=== PATIENT | female | born 1935 | race Caucasian/White ===

== ENCOUNTER 2024-03-30 08:50 | Emergency (ER) | payer MEDICARE, SELFPAY ==
[2024-03-30 08:54] VITALS: BP 151/77; PULSE 88; RESP 16; TEMP 36.8; O2SAT 97; BMI 22.7
--- NOTE | 2024-03-30 09:03 | CT_ITS ---
Patient: PHONG FRANK Facility:?[facility] Patient ID:?[id number] Site Patient ID:?[id number]. Site :?[id number] Study:?CT-Head -03/30/2024 9:38:24 AM Ordering Physician:?DR. DANIELLE Final Report: INDICATION: Fall, pain, bump on back of head TECHNIQUE: Noncontrast axial CT of the head. Coronal and sagittal reformats. Bone and soft tissue algorithms. COMPARISON: MRI brain report 08/10/2020 FINDINGS: The calvarium appears grossly intact. No acute intracranial hemorrhage or abnormal extra-axial fluid collection. No midline shift, hydrocephalus or herniation. Generalized cerebral volume loss. Scattered hypoattenuation throughout the supratentorial white matter typical of chronic microangiopathy. Preserved payne-white matter differentiation. Calcific intracranial atherosclerotic plaquing. Partially empty sella configuration. Clear visualized paranasal sinuses and mastoid air cells. Bilateral lens implants. IMPRESSION: 1. No skull fracture or acute intracranial hemorrhage identified. 2. Generalized cerebral volume loss and chronic microangiopathy changes. Please note that all CT scans at this facility use dose modulation, iterative reconstruction, and/or weight-based dosing when appropriate to reduce radiation dose to as low as reasonably achievable. Dictated by Holley Ward MD @ 03/30/2024 9:49:45 AM Signed by:?Holley Ward MD @03/30/2024 9:49:45 AM (Electronic Signature)
--- NOTE | 2024-03-30 09:03 | CT_ITS ---
Patient: PHONG FRANK Facility:?[facility] Patient ID:?[id number] Site Patient ID:?[id number]. Site :?[id number] Study:?CT-Spine Cervical -03/30/2024 9:36:57 AM Ordering Physician:?DR. DANIELLE Final Report: Indication: Fall, pain, bump on back of head Technique: Noncontrast axial CT of the cervical spine with coronal and sagittal reformats. Comparison: Same-day CT head Findings: The normal cervical lordosis is preserved. Trace degenerative anterolisthesis at C3-4 and C4-5. No acute fracture identified. Craniocervical junction appears within normal limits. Mild scattered spondylosis, without evidence of high-grade neural foraminal or spinal canal stenosis. No concerning findings identified in the paraspinous soft tissues. Clear lung apices. Impression: No evidence of acute fracture or traumatic malalignment in the cervical spine. Please note that all CT scans at this facility use dose modulation, iterative reconstruction, and/or weight-based dosing when appropriate to reduce radiation dose to as low as reasonably achievable. Dictated by Holley Ward MD @ 03/30/2024 9:52:15 AM Signed by:?Holley Ward MD @03/30/2024 9:52:15 AM (Electronic Signature)
--- NOTE | 2024-03-30 09:14 | ED_ITS ---
HPI - Head Injury General Date Seen: 03/30/24 Chief complaint: Head Injury/Pain Stated complaint: fell out of bed, hit head Time Seen by Provider: 03/30/24 09:00 Source: patient Mode of arrival: ambulatory Limitations: no limitations History of Present Illness HPI Narrative: Patient is an 89-year-old female presenting to emergency department of the hitting her head. She states the roughly 04:15 today she rolled off her bed and hit the side of her head against the side table. This causes side table the be per started wearing and the list of on top was knocked down. She denies losing consciousness. Was feeling well that time and got back into bed after taking the Tylenol. She is still feeling well at this time other than a mild headache but came in to be evaluated. She does take in the 81 mg aspirin daily but no other blood thinning medications. Denies fevers, chills, chest Pain, weakness, numbness, vision changes, shortness of breath And was able to ambulate into the emergency department without issue. No other concerns noted at this time. Related Data Home Medications Medication Instructions Recorded Confirmed aspirin 81 mg tablet,delayed 81 mg PO QDAY 08/09/23 03/30/24 release (Adult Low Dose Aspirin) atorvastatin 20 mg tablet 20 mg PO DAILY 08/09/23 03/30/24 blood sugar diagnostic (Regenerative Medical SolutionsTouch #10 ea 08/09/23 08/09/23 Verio test strips) insulin glargine 100 unit/mL (3 unit subcut 08/09/23 08/09/23 mL) subcutaneous pen (Lantus Solostar U-100 Insulin) lancets 33 gauge (Regenerative Medical SolutionsTouch Delica #100 ea 08/09/23 08/09/23 Plus Lancet) levothyroxine 75 mcg tablet 75 mcg PO DAILY 08/09/23 03/30/24 metformin 500 mg tablet,extended 1,000 mg PO BID 08/09/23 03/30/24 release 24 hr pen needle, diabetic 32 gauge x #1,200 ea 08/09/23 08/09/23 (BD Ivelisse 2nd Gen Pen Needle) insulin aspar prot-insulin aspart subcut 03/30/24 100 unit/mL (70-30) subcutaneous pen losartan 25 mg tablet mg 03/30/24 Allergies Allergy/AdvReac Type Severity Reaction Status Date / Time No Known Drug Allergies Allergy Verified 08/09/23 11:19 Review of Systems Status of ROS: Reports: 10 or more systems reviewed and unremarkable except as noted in History and below PFSH PFS Social History Smoking Status: Never smoker Do you use any of these nicotine containing products: None How often do you have a drink containing alcohol: never How often do you have six or more drinks on one occasion: Never AUDIT-C Alcohol total score: 0 Non-prescribed substance use: denies use service: No Exam Narrative: Exam Narrative: Const: Well-nourished, Well-developed, in No distress Eyes: PERRL, no conjunctival injection, and symmetrical lids HENT: Atraumatic external nose and ears. Moist mucous membranes. Small hematoma noted to the left posterior portion of the parietal bones Neck: Symmetric, trachea midline, No thyromegaly. CVS: RRR, No murmurs or gallops. Peripheral pulses 2+ and equal in all extremities RESP: Unlabored respiratory effort. Clear to auscultation bilaterally. GI: Nontender/Nondistended, No rebound or guarding. MSK:Extremities w/o deformity, Normal Active ROM Skin: Warm, Dry. No rashes or lesions. Neuro: Normal Muscle tone, No focal neurological deficits. Psych: Awake, Alert, & Oriented x3. Appropriate mood and affect. Const: Vital Signs, click to edit/add: Vital Signs - 24 hr 03/30/24 08:54 Temperature 98.2 F Pulse Rate [Pulse Oximeter] 88 Respiratory Rate 16 Blood Pressure [Ri ght Upper Arm] 151/77 H Pulse Oximetry 97 Oxygen Delivery Me thod Room Air Course Vital Signs Vital signs: Initial Vital Signs Temperature 98.2 F 03/30/24 08:54 Temperature Source Temporal Artery Scan 03/30/24 08:54 Pulse Rate 88 03/30/24 08:54 Respiratory Rate 16 03/30/24 08:54 Blood Pressure 151/77 H 03/30/24 08:54 Blood Pressure Mean 101 03/30/24 08:54 Blood Pressure Position Supine 03/30/24 08:54 Pulse Oximetry 97 03/30/24 08:54 Oxygen Delivery Method Room Air 03/30/24 08:54 Vital Signs Temperature 98.2 F 03/30/24 08:54 Pulse Rate 88 03/30/24 08:54 Respiratory Rate 16 03/30/24 08:54 Blood Pressure 151/77 H 03/30/24 08:54 Pulse Oximetry 97 03/30/24 08:54 Oxygen Delivery Method Room Air 03/30/24 08:54 Temperature 98.2 F 03/30/24 08:54 Pulse Rate 88 03/30/24 08:54 Respiratory Rate 16 03/30/24 08:54 Blood Pressure 151/77 H 03/30/24 08:54 Pulse Oximetry 97 03/30/24 08:54 Oxygen Delivery Method Room Air 03/30/24 08:54 MDM - Head Injury MDM Narrative Medical decision making narrative: Patient is An 89-year-old female presenting to emergency department after a fall at occurred roughly 5 hours prior to arrival. She is having no symptoms at this time other than a mild headache. Due to her age I did order a CT scan of the cervical spinal will also scan her head. Is not requesting any pain medication this time. has no neurological symptoms currently. CT is reviewed by myself and the radiologist showed no concerning abnormalities. She continues to have stable vital signs we others asymptomatic. Will be discharged. Imaging Data CT Scan - Cervical Spine: Attestation: I have reviewed the pertinent imaging results. Radiologist's impression: No evidence of acute fracture or traumatic malalignment in the cervical spine. Please note that all CT scans at this facility use dose modulation, iterative reconstruction, and/or weight-based dosing when appropriate to reduce radiation dose to as low as reasonably achievable. Dictated by Holley Ward MD @ 03/30/2024 9:52:[address] scan - head: Attestation: I have reviewed the pertinent imaging results. Radiologist's impression: 1. No skull fracture or acute intracranial hemorrhage identified. 2. Generalized cerebral volume loss and chronic microangiopathy changes. Please note that all CT scans at this facility use dose modulation, iterative reconstruction, and/or weight-based dosing when appropriate to reduce radiation dose to as low as reasonably achievable. Dictated by Holley Ward MD @ 03/30/2024 9:49:45 AM Discharge Plan Discharge Clinical Impression: Closed head injury Patient Disposition: Home, Self-Care Condition: Stable Instructions: Head Injury (DC) Additional Instructions: Take Tylenol ibuprofen as needed for pain. If symptoms worsen or develop any new symptoms return to emergency department for re-evaluation Prescriptions: No Action insulin glargine [Lantus Solostar U-100 Insulin] 100 unit/mL (3 mL) insulin pen subcut (DME) lancets [OneTouch Delica Plus Lancet] 33 gauge misc See Rx Instructions .ROUTE .MEDSUPPLY Qty: 100 Patient Comments: [NO ORIGINAL SIG] Rx Instructions: As directed (DME) pen needle, diabetic [BD Ivelisse 2nd Gen Pen Needle] 32 gauge x 5/32 needle See Rx Instructions .ROUTE .MEDSUPPLY Qty: 1200 Patient Comments: [NO ORIGINAL SIG] Rx Instructions: As directed atorvastatin 20 mg tablet 20 mg PO DAILY metformin 500 mg tablet extended release 24 hr 1,000 mg PO BID levothyroxine 75 mcg tablet 75 mcg PO DAILY (DME) OneTouch Verio test strips Strip See Rx Instructions .ROUTE QID Qty: 10 Rx Instructions: As directed aspirin [Adult Low Dose Aspirin] 81 mg tablet,delayed release (DR/EC) 81 mg PO QDAY losartan 25 mg tablet Patient Comments: [NO ORIGINAL SIG] insulin asp prt-insulin aspart 100 unit/mL (70-30) insulin pen SUBCUT Patient Comments: ADMINISTER 5 UNITS UNDER THE SKIN BEFORE BREAKFAST AND SUPPER MEALS Follow Up/Referrals: Adonis Aguilar MD [Primary Care Provider] - Stand Alone Forms: [employer] Info Instructions
== END 2024-03-30 10:30 | disposition home or self-care (01) ==
PROVIDERS: Emergency Provider Student in an Organized Health Care Education/Training Program; PCP Family Medicine
DX: S09.90XA Unspecified injury of head, initial encounter (principal); W06.XXXA Fall from bed, initial encounter
CPT/HCPCS: 70450; 72125; 99282; 99283

== ENCOUNTER 2024-04-11 11:12 | Outpatient (CLI) | payer MEDICARE, SELFPAY | END 2024-04-11 11:13 | disposition home or self-care (01) | LOC: NFLDREF 04-27 15:31 | PROVIDERS: PCP Family Medicine; Referring Provider Family Medicine; Visit Provider Nurse Practitioner | DX: N30.00 Acute cystitis without hematuria (principal); B96.1 Klebsiella pneumoniae [K. pneumoniae] as the cause of diseases classified elsewhere | CPT/HCPCS: 87086; 87186 ==

== ENCOUNTER 2024-09-01 06:16 | Day surgery (SDC) | payer MEDICARE, SELFPAY ==
[2024-09-01] VITALS (7 sets, daily range): BP systolic 140–177; BP diastolic 68–85; PULSE 73–83; RESP 16–20; TEMP 36.2–37.1; O2SAT 95–97; BMI 23.6
[2024-09-01] MEDS: BUPIVACAINE 0.5% 30 ML INJECTION (07:00)
--- NOTE | 2024-09-01 09:46 | PM.ORPRC ---
Procedure Note Date of procedure: 09/01/24 Procedure: PREOPERATIVE DIAGNOSIS: 1. Left carpal tunnel syndrome POSTOPERATIVE DIAGNOSIS: 1. Left carpal tunnel syndrome PROCEDURE: 1. Left open carpal tunnel release SURGEON: Jalen Martini MD. [employer]: OCTAVIO Cook ANESTHESIA: Local anesthetic (50:50 mixture of 1% lidocaine with epi and 0.5% marcaine plain) - 10ml total IMPLANTS: None EBL: 2 mL TOURNIQUET: None COMPLICATIONS: None evident INDICATIONS: The patient is a pleasant 89-year-old female who has experienced left hand numbess/tingling affecting the radial 3.5 digits for multiple months. It has progressively gotten worse. Nonoperative management has been tried and failed, and therefore surgery was recommended. DESCRIPTION OF PROCEDURE: Following a thorough discussion of risks, benefits, and alternatives consent was obtained and the operative extremity was marked. The patient was brought to the operating room and placed supine on the operating table. Local anesthesia induction was undertaken in preop holding. No antibiotics were administered as this was planned to be a local case only. Proper time-out was performed identifying proper patient, site, and procedure. The operative extremity was prepped and draped in the appropriate sterile fashion using ChloraPrep. An incision was made in line with the radial border of the ring finger beginning 1 cm distal to the distal wrist crease and progressing for another 2.5cm distal. Caution was taken to stay proximal to Gaviria's cardinal line. Sharp incision through the skin, subcutaneous tissue, and palmar fascia was performed. The thenar musculature was bluntly elevated off the transverse carpal ligament. The ligament was directly visualized, and divided sharply with a 15 blade. This was released from its most proximal to the most distal extent. Metzenbaum scissor was also utilized to release the fascia extension proximally. We confirmed complete release of the transverse carpal ligament. Closure was performed with 4-O nylon in interrupted fashion. Soft dressings were applied, and the patient was transferred to the recovery room in stable condition. PLAN: 1. Encourage elevation of the operative extremity. 2. Range of motion of the fingers and hand/wrist as tolerated. 3. Ibuprofen/acetaminophen and/or oxycodone as needed for pain control. 4. Follow up with PA visit or nurse visit in 12-16 days for wound check and suture removal.
== END 2024-09-01 08:02 | disposition home or self-care (01) ==
LOC: OR 06:18
PROVIDERS: PCP Family Medicine; Visit Provider Orthopaedic Surgery Sports Medicine
PROC: (CPT 64721; principal; 2024-09-01 07:15)
DX: G56.02 Carpal tunnel syndrome, left upper limb (principal)
CPT/HCPCS: 64721; J0665

== ENCOUNTER 2024-11-17 06:16 | Day surgery (SDC) | payer MEDICARE, SELFPAY ==
[2024-11-17] VITALS (7 sets, daily range): BP systolic 150–166; BP diastolic 70–77; PULSE 72–79; RESP 16; TEMP 36.2; O2SAT 96–100
--- OUTSIDE RECORDS SUMMARY | 2024-11-17 06:20 | XMS_ITS | Continuity of Care Document ---
Author Name [email or web address] Address Unknown Organization Unknown Address Unknown Procedures FILTER APPLIED:Only known Procedures with Onset Date within the last 5 years Procedure Date Procedure Provider Additional Inform ation Status CT NECK SPINE W/O DYE (04756) Completed CT HEAD/BRAIN W/O DYE (90199) Completed Encounters FILTER APPLIED:Only known Encounters with Admission Date within the last 5 years Encounter Location Admission Discharge Billing Code Technical Sales Director [facility] steinberg
--- OUTSIDE RECORDS SUMMARY | 2024-11-17 06:21 | XMS_ITS | Clinical Summary ---
Author Organization [email or web address] Address [place], [place] [address] Care Team Providers Care Security Incident Response Specialist Name Role Phone Raymond Arevalo Unavailable Adonis Aguilar MD Primary Care Provider Allergies No known active allergies Medications zinc 50 mg tablet Twice weekly 0 11/15/19 15 Active calcium carbonate-vitami n D3, 500 mg-400 units, (OSCAL 500 + D) tablet Take 1 tablet by mouth once daily. May take 3 extra doses in 1 week. 0 02/22/20 16 Active ascorbic acid (VITAMIN C) 100 mg tablet Take 1 tablet 2 times in 1 week. Take with Zinc. 0 02/22/20 16 Active acetaminophen (TYLENOL EXTRA STRGTH) 500 mg tablet Take 1 tablet by mouth every 6 hours if needed. Max acetaminophen dose: 4000mg in 24 hrs. 0 01/11/20 17 Active blood-glucose meterIndications :Diabetes mellitus type 2, noninsulin dependent (HC) Dispense meter, test strips, lancets covered by pt ins. E11.9 NIDDM type II - Test 1 time/day 1 Device 03/03/20 18 Active aspirin (ECOTRIN) 81 mg enteric coated tablet Take 1 tablet by mouth once daily with a meal. 0 08/11/20 20 Active cyanocobalamin (VITAMIN B12) 1,000 mcg tabletIndication s:Vitamin B12 deficiency TAKE 1 TABLET BY MOUTH EVERY DAY 90 Tablet 1 08/23/20 21 Active lancets (OneTouch Delica Plus Lancet) 33 gauge miscIndications: Diabetes mellitus type 2, noninsulin dependent (HC) USE TO TEST TWICE DAILY 200 Each 3 01/22/20 23 Active atorvastatin (LIPITOR) 20 mg tabletIndication s:Controlled type 2 diabetes mellitus without complication, without long-term current use of insulin (HC) Take 1 Tablet (20 mg) by mouth once daily. 90 Tablet 3 11/14/19 24 Active levothyroxine (SYNTHROID) 100 mcg tabletIndication s:Hypothyroidism , unspecified type Take 1 Tablet (100 mcg) by mouth before breakfast. 90 Tablet 3 02/18/20 24 Active FreeStyle Tony 3 Sensor for continuous blood glucose monitor (CGM)Indications :Controlled type 2 diabetes mellitus without complication, without long-term current use of insulin (HC) To be used to read blood sugars, follow annual greenhouse manager directions. Change each sensor every 14 days 6 Each 3 04/12/20 24 Active metFORMIN (GLUCOPHAGE XR) 500 mg Extended-Release tabletIndication s:Controlled type 2 diabetes mellitus without complication, without long-term current use of insulin (HC) TAKE 4 TABLETS(2000 MG) BY MOUTH EVERY DAY WITH THE EVENING MEAL 360 Tablet 1 05/17/20 24 Active pen needle (BD Ivelisse 2nd Gen Pen Needle) 32 gauge x 5/32 (disposable insulin pen needle)Indicatio ns:Controlled type 2 diabetes mellitus with complication, with long-term current use of insulin (HC) As directed 4 to 6 times daily after meals, at bedtime and as needed. 400 Each 3 06/28/20 24 Active FreeStyle Tony 3 [place] for continuous blood glucose monitor (CGM)Indications :Controlled type 2 diabetes mellitus without complication, without long-term current use of insulin (HC) To be used to read blood sugars follow annual greenhouse manager directions. 1 Each 08/06/20 24 Active blood sugar diagnostic (OneTouch Verio test strips) stripIndications :Diabetes mellitus type 2 with complications (HC) USE TO TEST 3-4 TIMES DAILY 300 Each 3 08/18/20 24 Active oxybutynin (DITROPAN) 5 mg tabletIndication s:OAB (overactive bladder) Take 1 Tablet (5 mg) by mouth two times daily. 180 Tablet 3 08/18/20 24 Active Lantus Solostar U-100 Insulin 100 unit/mL (3 mL) penIndications:C ontrolled type 2 diabetes mellitus without complication, without long-term current use of insulin (HC) Inject 4 units subcutaneous before bedtime. Product desired: LANTUS SOLOSTAR 15 mL 1 08/18/20 24 Active FreeStyle Tony 3 Plus Sensor for continuous blood glucose monitor (CGM)Indications :Controlled type 2 diabetes mellitus without complication, without long-term current use of insulin (HC) To be used to read blood sugars, follow annual greenhouse manager directions. 6 Each 3 09/09/20 24 Active insulin aspart, U-100, (NOVOLOG FLEXPEN) 100 unit/mL (3 mL) penIndications:C ontrolled type 2 diabetes mellitus without complication, without long-term current use of insulin (HC) ADMINISTER 4 TO 8 UNITS UNDER THE SKIN BEFORE MEALS 9 mL 1 09/29/20 24 Active estradioL (ESTRACE) 0.01% (0.1 mg/g) vaginal creamIndications :Post-menopausal atrophic vaginitis Place a small amount to the outside of vaginal and labia at bedtime. 42.5 g 3 10/11/20 24 Active clotrimazole-bet amethasone 1%-0.05% creamIndications :Post-menopausal atrophic vaginitis Apply topically to affected area(s) two times daily. 15 g 10/11/20 24 Active olmesartan (BENICAR) 40 mg tabletIndication s:Benign essential HTN Take 1 Tablet (40 mg) by mouth once daily. 30 Tablet 11 10/26/20 24 Active amLODIPine (NORVASC) 2.5 mg tabletIndication s:Benign essential HTN Take 1 Tablet (2.5 mg) by mouth once daily. 90 Tablet 3 11/05/20 24 Active losartan (COZAAR) 100 mg tabletIndication s:Benign essential HTN Take 1 Tablet (100 mg) by mouth once daily. 90 Tablet 3 06/28/20 24 024 Discontinu ed(*Medica tion adjustment ) cephalexin 500 mg capsuleIndicatio ns:urinary tract infection Take 1 Capsule (500 mg) by mouth two times daily for 7 days. 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. MRI head performed 08/10/20; awaiting results. Patient started on Eliquis 2.5 mg PO BID and Asa 81 mg PO QD. Urinary incontinence 06/12/2020 Benign essential HTN 02/08/2019 Controlled type 2 diabetes m mo with complication, with long-term current use of insulin 12/02/2018 Primary osteoarthritis of both knees 11/16/2015 ACP (advance care planning) 10/23/2011 Overview (10/23/2011): Has one; will bring in. 10/23/2011 Unspecified hypothyroidism 07/22/2007 Resolved Problems Problem Noted Date Diagnosed Date Resolved Date Vulvar itching 05/29/2023 08/18/2024 Atrial fibrillation with rap id ventricular response 01/07/2017 09/22/2020 Anticoagulation monitoring, INR range 2-3 01/07/2017 01/24/2017 Type II diabetes mellitus 01/19/2015 Impaired fasting glucose 10/23/201110/2015 Hair thinning 10/16/2010 06/02/2018 Overview (10/16/2010): Referred to Dr Yanet Olivier. 10/16/2010 Generalized osteoarthrosis, unspecified site 9 12/14/2020 Sciatica 10/11/2009 06/02/2018 Overview (10/11/2009): Right Leg Postmenopausal atrophic vaginitis 10/11/2009 12/14/2020 Routine general medical exam ination at a health care facility 10/06/2007 06/02/2018 Overview (10/11/2009): colonoscopy 09/2002 Recheck 5 yrs colonoscopy 11/26/2004 Recheck 5 yrs colonoscopy 11/2007 Recheck 5 yrs Bone Density 10/06/2006 Osteopenia Recheck 2 yrs: Bone mineral density 10/2008: stable Benign neoplasm of colon 10/06/200702/2021 Overview (11/15/2015): Colonoscopy 11/2012 polyps repeat in 3 years Colonoscopy 11/2015 diverticulosis repeat in 5 years Pain in joint, site unspecified 10/06/2007 06/02/2018 Osteoporosis, unspecified 07/22/2007 Overview (10/16/2010): Quit Fosamax in approximately 06/2010. 10/16/2010 Mixed hyperlipidemia 07/22/2007 012 Encounters Date Type Department Care Team Description 11/05/2024 11:20 AM PICKLE SOLUTION MAKER Office Visit [facility] [place] [address] [place] [address] Adonis Aguilar MD Follow Up (Blood pressure medication change) 11/05/2024 Travel 10/26/2024 2:30 PM PICKLE SOLUTION MAKER Office Visit [facility] [place] [address] [place] [address] Adonis Aguilar MD Blood Pressure (Elevated blood pressure past 3 days) 10/26/2024 Travel 10/25/2024 Telephone [facility] [place] [address] [place] [address] Adonis Aguilar MD High Blood Pressure 10/25/2024 Nurse Triage [facility] [place] [address] [place] [address] Adonis Aguilar MD High Blood Pressure 10/13/2024 Orders Only [facility] [place] [address] [place] [address] Salma Warren, DO <No scans attached> 10/11/2024 11:05 AM PICKLE SOLUTION MAKER Office Visit [facility] [place] [address] [place] [address] Salma Warren, Bladder Infection (cloudy urination, frequency, urgency, burning); Vaginal Problem (right side of labia/) 10/11/2024 Travel 09/26/2024 Refill [facility] [place] [address] [place] [address] Adonis Aguilar MD Refill Request (Insulin Aspart (U-100)) 09/06/2024 Refill [facility] [place] [address] [place] [address] Adonis Aguilar MD Refill Request (Freestyle Tony 3 Sensor) 08/30/2024 Telephone [facility] [address] [place] [address] Steph Reza, RN Questions 08/18/2024 9:40 AM CDT Office Visit [facility] [place] [address] [place] [address] Adonis Aguilar MD Medicare ANNUAL (subsequent) Visit (89 year old); Hand Pain/problem (Bilateral hand pain, ongoing) 08/18/2024 Telephone [facility] [place] [address] [place] [address] Adonis Aguilar MD Results 08/18/2024 Travel from Last 3 Months Immunizations Name Administration Dates Next Due Amb Influenza, Inact (Intrad ermal)(age 18-64 Yrs)(Flu Clinic Only) 09/08/2012 COVID-19 VACCINE SPIKEVAX (M ODERNA 50MCG/0.5ML) 12YO+ PFS 07/26/2024,05/17/2024,08/07/2023 COVID-19 vaccine (Trademob-Bio NTech 30mcg/0.3mL) 12YO+ BIVALENT PF, MDV 04/24/2023,08/08/2022 COVID-19 vaccine (Pfizer-Bio NTech 30mcg/0.3mL) PF, MDV 01/06/2021,12/16/2020 Influenza A (H1N1), Inactivated 12/07/2009 Influenza, High-dose Inactivated 024,08/07/2016,07/31/2015,08/08 Influenza, High-dose Quadriv alent Inactivated 08/01/2021 Influenza, IIV3 (Age 6-35 mos) 07/14/2020 Influenza, IIV3 (Age >=3 years) 08/11/20 13,07/28/2012,07/09/2011,07/31,07/24/2009,08/10/2008,09/03/2007 ,09/29/2006,09/02/2005,09/10/2004 Influenza, Inactivated AIIV4 (Age 65+ Years) Preserv Free 08/08/2022 Influenza, Inactivated IIV3 (Age 65+ Years) Preserv Free 08/05/2019,08/31/2018,08/07/2017 Influenza,CCIIV4 PRESERV FREE 08/07/2023 Pneumococcal Conj 20-valent (Prevnar 20) 05/29/2023 Pneumococcal Poly,23-Valent (Pneumovax) 09/05/2003 Pneumococcal conj 13-Valent (Prevnar 13) 08/22/2015 RSV, Recombinant ADJ Reconst ituted (Arexvy 120MCG/0.5mL) 08/16/2023 Td (Age >=7 Years) 09/06/2002 Tdap 09/18/2021,10/23/2011 Zoster (Shingrix-RZV, recombinant) 06/02/2018,,12/11/2017 Zoster (Zostavax-ZVL, live) 02/23/2007 Family History Medical History Relation Name Comments Hypertension Brother 1 Jacinto Heart Disease Brother 2 Wilfrid Cancer-prostate Father Thad Heart Disease Father Thad CHF, age 96 Hypertension Father Thad Other Father Thad Renal Failure Heart Disease Mother Etelvina CHF Diabetes Other uncles Anesthesia Problem No Family History Blood Disease No Family History Cancer-breast No Family History Relation Name Status Comments Brother 1 Jacinto Alive Brother 2 Wilfrid Alive Father Thad (Age 96) Mother Etelvina (Age 72) Other Social History Tobacco Use Types Packs/Day Years Used Date Smoking Tobacco: Former Cigarettes Smokeless Tobacco: Former Quit: 11/10/1960 Tobacco Cessation:Counseling Given: No Alcohol Use Standard Drinks/Week Comments Yes 4 (1 standard drink = 0.6 oz pur e alcohol) 5 oz wine 4 times a week [facility] Utilities Answer Date Recorded Do you have trouble paying f or utilities (for example, heat, electricity, water, phone)? Yes 07/26/2024 PHQ-2 Answer Date Recorded PHQ-2 TOTAL SCORE 1 08/18/2024 Social Connections Answer Date Recorded Do you often feel lonely or isolated from those around you? 0 07/26/2024 Financial Resource Strain Answer Date R ecorded Difficulty of Paying Living Expenses 3 07/26/2024 Difficulty of Paying Living Expenses Not on file 07/26/2024 Food Insecurity Answer Date Recorded Do you worry your food will run out before you are able to buy more? 1 07/26/2024 Transportation Needs Answer Date Record ed Does lack of transportation keep you from medica l appointments? 1 07/26/2024 Does lack of transportation keep you from work, meetings or getting things that you need? 1 07/26/2024 Housing Stability Answer Date Recorded What is your housing situation today? 1 07/26/2024 Comments No Sex and Gender Information Value Date Recorded Sex Assigned at Not on file Legal Sex Female 6:28 AM PICKLE SOLUTION MAKER Gender Identity Not on file Sexual Orientation Not on file Occupation Industry Job Start Date Job End Date Retired Nurse Not on file Not on file Not on file Obstetrics History Para Term AB IAB SAB Ectopic Multiple Livin g Live Births 4 3 3 1 1 3 Date Outcome GA Total Labor Labor/2nd/3rd Weight Sex Type Anes PTL Jazlyn A1 A5 Name Clin Term Term Term SAB Last Filed Vital Signs Vital Sign Reading Time Taken Comments Blood Pressure 169/71 11/05/2024 11:18 AM PICKLE SOLUTION MAKER Pulse 84 11/05/2024 11:18 AM PICKLE SOLUTION MAKER Temperature 36.8 C (98.3 F) 04/26/2024 10:37 AM CDT Respiratory Rate 18 09/21/2021 10:4 7 AM PICKLE SOLUTION MAKER Oxygen Saturation 96% 11/05/2024 11: 18 AM PICKLE SOLUTION MAKER Inhaled Oxygen Concentration - - Weight 56.6 kg (124 lb 12.8 oz) 024 11:18 AM PICKLE SOLUTION MAKER Height 153.6 cm (5' 0.47) 08/18/2024 9:40 AM CD T Body Mass Index 23.99 08/18/2024 9:40 AM CDT Plan of Treatment Upcoming Encounters Date Type Department Care Team (Late st Contact Info) Description 11/26/2024 8:00 AM PICKLE SOLUTION MAKER Orders Only [facility] [place] [address] [place] [address] Lab, [place] 11/26/2024 8:25 AM PICKLE SOLUTION MAKER Office Visit [facility] [place] [address] [place] [address] Adonis Aguilar MD [address] [place] [address] Health Maintenance Due Date Last Done Comments BMI (ht and wt on same day) for age 18+ 08/18/2025 08/18/2024, 01/05/2024, 05/29/2023, Additional history exists Depression screening for age 12+ 08/18/2025 08/18/2024, 08/18/2024, 05/29/2023, Additional history exists Medicare Wellness for age 65+ 08/19/2025, 05/29/2023, 04/26/2022, Additional history exists Tetanus booster 09/18/2031 09/18/2021, 10/10, 09/06/2002 Zoster (shingles) series for age 50+ Completed 06/02/2018, 03/04/2018, 12/11/2017, Additional history exists DEXA/DXA scan for age 65+ Completed 2020, 12/08/2015, 11/21/2011, Additional history exists Tdap Completed 09/18/2021, 10/23/2011 Pneumococcal series for age 50+ Completed 05/29/2023, 08/22/2015, 09/05/2003 RSV vaccine for adults or Completed 08/16/2023 Influenza for age 65+ Completed 07/21/2024 , 08/07/2023, 08/08/2022, Additional history exists COVID-19 vaccine series Completed 07/26/20, 05/17/2024, 08/07/2023, Additional history exists Procedures Procedure Name Priority Date/Time Associated Diagnosis Comments URINALYSIS MICROSCOPIC Add On 10/11/2024 1:00 PM PICKLE SOLUTION MAKER Dysuria URINE CULTURE Add On 10/11/2024 1:00 PM PICKLE SOLUTION MAKER Dysuria URINE ALBUMIN TO CREATININE RATIO, RANDOM Routine 10/11/2024 11:23 AM PICKLE SOLUTION MAKER Controlled type 2 diabetes mellitus without complication, without long-term current use of insulin (HC) URINALYSIS MACROSCOPIC - [facility] ONLY POC DIP ([facility]) Routine 10/11/2024 11:19 AM PICKLE SOLUTION MAKER Dysuria BASIC METABOLIC PANEL Routine 08/18/2024 9:26 AM CDT Controlled type 2 diabetes mellitus with complication, with long-term current use of insulin (HC) HEMOGLOBIN A1C MONITORING (POCT) Routine 08/18/2024 9:25 AM CDT Controlled type 2 diabetes mellitus with complication, with long-term current use of insulin (HC) XR DXA BONE DENSITY 2 SITES AXIAL Routine 01/08/2021 8:52 AM PICKLE SOLUTION MAKER Post-menopausal from Last 3 Months or Most Recently Relevant to Health Maintenance Results * (ABNORMAL) URINALYSIS MICROSCOPIC (10/11/2024 1:00 PM PICKLE SOLUTION MAKER) RBC 0-2 0-2, None Seen /HPF 10/12/2024 4:25 PM PICKLE SOLUTION MAKER [facility] WBC 51-100(A) 0-2, 3-5, None Seen /HPF 10/12/2024 4:25 PM PICKLE SOLUTION MAKER [facility] BACTERIA Few None Seen, Rare, Few Bacteria/ HPF 10/12/2024 4:25 PM PICKLE SOLUTION MAKER [facility] EPITHELIAL CELLS None Seen None Seen, Few Epi/HPF 10/12/2024 4:25 PM PICKLE SOLUTION MAKER [facility] HYALINE CASTS 3-5 0-2, 3-5 /LPF 10/12/2024 4:25 PM PICKLE SOLUTION MAKER [facility] Urine URINE SPECIMEN / Unknown Non-Blood / Unknown 10/11/2024 1:00 PM PICKLE SOLUTION MAKER 10/12/2024 7:19 AM PICKLE SOLUTION MAKER Salma Warren DO URINE Final Resul t Performing Organization Address City/Va Hospital/ZIP Co de Phone Number [facility] [address] [address], [place] * (ABNORMAL) URINE CULTURE (10/11/2024 1:00 PM PICKLE SOLUTION MAKER) CULTURE RESULT(A) 10/14/2024 7:01 AM PICKLE SOLUTION MAKER [facility] CULTURE >100,000 CFU/mL Klebsiella variicola 10/14/2024 7:01 AM PICKLE SOLUTION MAKER [facility] Urine URINE SPECIMEN / Unknown Non-Blood / Unknown 10/11/2024 1:00 PM PICKLE SOLUTION MAKER 10/12/2024 7:19 AM PICKLE SOLUTION MAKER Narrative Organism Antibiotic Method Susceptibility Klebsiella variicola TRIMETHOPRIM/SULF <=1/19: S Klebsiella variicola AMPICILLIN R Klebsiella variicola CEFAZOLIN 2: S Klebsiella variicola GENTAMICIN <=1: S Klebsiella variicola CEFTRIAXONE <=0.25: S Klebsiella variicola CEFTAZIDIME <=0.5: S Klebsiella variicola LEVOFLOXACIN <=0.12: S Klebsiella variicola CIPROFLOXACIN <=0.06: S Klebsiella variicola PIPERACILLIN/TAZO <=4: S Klebsiella variicola AMPICILLIN/SULBACTAM 4: S Klebsiella variicola CEFEPIME <=0.12: S Klebsiella variicola MEROPENEM <=0.25: S Klebsiella variicola NITROFURANTOIN <=16: S Salma Warren DO MICROBIOLOGY Final Resul t Performing Organization Address City/Va Hospital/ZIP Co de Phone Number [facility] [address] [address], [place] * (ABNORMAL) URINE ALBUMIN TO CREATININE RATIO, RANDOM (10/11/2024 11:23 AM PICKLE SOLUTION MAKER) ALB RAND URINE 16.2 mg/L 10/11/2024 11:51 PM PICKLE SOLUTION MAKER [facility] CREATININE,URIN E 0.27 g/L 10/11/2024 11:51 PM PICKLE SOLUTION MAKER [facility] ALBUMIN TO CREATININE RATIO,RAND UR 60.0(H) <30.0 mg/g creat 10/11/2024 11:51 PM PICKLE SOLUTION MAKER [facility] Urine URINE SPECIMEN / Unknown Non-Blood / Unknown 10/11/2024 11:23 AM PICKLE SOLUTION MAKER 10/11/2024 11:23 AM PICKLE SOLUTION MAKER Narrative [facility] - 10/11/2024 11:51 PM PICKLE SOLUTION MAKER If Albumin to Creatinine Ratio is elevated, consider the following: Elevations seen with incipient nephropathy associated with diabetes mellitus or hypertension. Stress, exercise,hematuria, and urinary tract infection may also produce elevated results. If clinically indicated, confirm with 24 Hour Albumin to Creatinine Ratio. us Adonis Aguilar MD URINE Final Result Performing Organization Address City/Va Hospital/ZIP Co de Phone Number [facility] [address] [place] [phone], * (ABNORMAL) POCT Urinalysis Dipstick Only (10/11/2024 11:19 AM PICKLE SOLUTION MAKER) PH 7.0 5.0 - 8.0 [facility] SPECIFIC GRAVITY 1.010 1.001 - 1.035 [facility] GLUCOSE NEGATIVE NEGATIVE [facility] BILIRUBIN NEGATIVE NEGATIVE [facility] KETONES NEGATIVE NEGATIVE [facility] OCCULT BLOOD TRACE(A) NEGATIVE [facility] PROTEIN NEGATIVE NEGATIVE [facility] NITRITE NEGATIVE NEGATIVE [facility] LEUKOCYTE ESTERASE 1+(A) NEGATIVE [facility] Urine URINE SPECIMEN / Unknown 10/11/2024 11:19 AM PICKLE SOLUTION MAKER 10/11/2024 11:20 AM PICKLE SOLUTION MAKER us Salma Calvint DO URINE Final Resul t [facility] [address] [place] [address], [place] [phone] [facility] [address] [place] [address] * (ABNORMAL) BASIC METABOLIC PANEL (08/18/2024 9:26 AM CDT) GLUCOSE 215(H) 65 - 139 mg/dL [facility] Comment: Non-fasting reference interval UREA NITROGEN (BUN) 21 7 - 25 mg/dL [facility] CREATININE 0.86 0.60 - 0.95 mg/dL [facility] EGFR 65 > OR = 60 mL/min/1. 73m2 [facility] BUN/CREATININE RATIO SEE NOTE: 6 - 22 (calc) [facility] Comment: Not Reported: BUN and Creatinine are within reference range. SODIUM 137 135 - 146 mmol/L [facility] POTASSIUM 4.3 3.5 - 5.3 mmol/L [facility] CHLORIDE 99 98 - 110 mmol/L [facility] CARBON DIOXIDE 31 20 - 32 mmol/L [facility] ELECTROLYTE BALANCE 7 7 - 17 mmol/L (calc) [facility] CALCIUM 9.6 8.6 - 10.4 mg/dL [facility] Blood BLOOD SPECIMEN / Unknown 08/18/2024 9:26 AM CDT 08/18/2024 9:28 AM CDT Narrative [facility] - 08/19/2024 9:58 AM CDT FASTING:NO FASTING: NO Adonis Aguilar MD CHEMISTRY Final Result [employer] [facility] [address] [place] [address], [place] [phone] [employer] [address] [place] [address] * (ABNORMAL) HEMOGLOBIN A1C MONITORING (POCT) (08/18/2024 9:25 AM CDT) POC HEMOGLOBIN A1C 7.5(H) <6.0 % OF TOTAL HGB [facility] Comment: Any point of care results exhibiting inconsistency with the patient's clinical status should be repeated using a different testing method. Blood BLOOD SPECIMEN / Unknown 08/18/2024 9:25 AM CDT 08/18/2024 9:25 AM CDT Adonis Aguilar MD CHEMISTRY Final Result [facility] [address] [place] [address], [facility] [address] [place] [address] * (ABNORMAL) XR DXA BONE DENSITY 2 SITES AXIAL (01/08/2021 8:52 AM PICKLE SOLUTION MAKER) Anatomical Region Laterality Modality Spine, HIPS, HIPL, HIPR Other Impressions 01/12/2021 4:27 PM PICKLE SOLUTION MAKER Osteopenia. RECOMMENDATIONS: The National Osteoporosis Foundation recommends pharmacologic treatment for patients with T-scores of -2.5 or less, patients with prior history of fragility fractures, or patients with 10-year probability of greater than 3% at hips or greater than 20% of suffering major osteoporotic fractures. Recommend continued optimization of calcium and vitamin D intake through dietary means and/or supplementation and regular exercise. Repeat scan recommended in 2 years. Joyce Rome PA-C [facility] 01/12/2021 Narrative 01/12/2021 4:27 PM PICKLE SOLUTION MAKER XR DXA Bone Mineral Density (BMD) EXAM LOCATION: [facility] [address] [facility] [address] PATIENT NAME: Naomy Coburn DATE OF : 1935 EXAM DATE: 01/08/2021 REQUESTING PROVIDER: Adonis Aguilar MD GENDER AT : female HEIGHT: 5' 0.63 (12/14/2020) WEIGHT: 113 lb (01/03/2021) MENOPAUSAL STATUS: Postmenopausal RACE/ETHNICITY: White RISK FACTORS: ADVANCED AGE CURRENT MEDICATION FOR BONE LOSS: NONE INDICATION: FOLLOW UP OF EXISTING OSTEOPENIA COMPARISON DATE(S): 2016 DXA scans are compared to prior studies for a patient only when the two (or more) studies were performed on the same scanner. It is not possible to compare data generated on one scanner to data from another because there are not standards in DXA equipment. This applies even if the two scanners are made by the same annual greenhouse manager. PROCEDURE: Dual-energy x-ray absorptiometry performed with routine technique. Reporting is completed in the form of a T-score. The T-score represents the standard deviation from peak bone mass based on young healthy adult. A Z-score is used for diagnosis in premenopausal women, and for men under the age of 50. FINDINGS: RESULT LUMBAR SPINE L1 and L2 BMD: 0.878 g/cm2 T-Score: -2.4 Z-Score: -0.096 Comparison to most recent scan in 2016: Decrease 9.9%. RESULT FEMORAL NECK Right Total Femoral Neck BMD: 0.907 g/cm2 T-Score: -0.9 Z-Score: 1.7 RESULT TOTAL HIP Bilateral Total Hip BMD: 0.851 g/cm2 T-Score: -1.2 Z-Score: 1.3 Comparison to most recent scan in 2016: Decrease 8.1%. WHO criteria: Normal: T-score at or above -1 SD Osteopenia: T-score between -1.1 and -2.4 SD Osteoporosis: T-score at or below -2.5 SD Adonis Aguilar MD DEXA Final Result from Last 3 Months or Most Recently Relevant to Health Maintenance [place] [address] MEDICARE PART B HB ONLY MEDICARE PART A HB ONLY [facility] MEDICARE ADVANTAGE Advance Directives Documents on File Type Date Recorded Patient Groutman Expl anation Healthcare Directive 01/14/2022 10:01 AM HE ALTHCARE DIRECTIVE, 12/04/21 Healthcare Directive 10/29/2012 2:36 PM H EAH CARE DIRECTIVE, [facility], 12/26/10 Care Teams Security Incident Response Specialist Relationship Specialty Start Date End Date Adonis Aguilar MD [address] [place] [address] PCP - General Family Practice 08/31/15 Raymond Arevalo [address] [place] [id number] Ophthalmology Surgery 10/23/11
[2024-11-17] MEDS: LIDOCAINE 1%-EPI 1:100,000 20 ML INFILTRATI (06:23)
[2024-11-17] MEDS: ETHYL CHLORIDE 1 APPLICATION 1 APPLIC TOPICAL (06:55)
[2024-11-17] MEDS: BUPIVACAINE 0.5% 30 ML INJECTION (06:55)
--- NOTE | 2024-11-17 07:14 | SUR.PREOP ---
Dr. Martini aware of blood glucose. No new orders.
--- NOTE | 2024-11-17 07:33 | PM.ORPRC ---
Procedure Note Date of procedure: 11/17/24 Procedure: PREOPERATIVE DIAGNOSIS: 1. Right carpal tunnel syndrome POSTOPERATIVE DIAGNOSIS: 1. Right carpal tunnel syndrome PROCEDURE: 1. Right open carpal tunnel release SURGEON: Jalen Martini MD. TALENT ACQUISITION RELATIONSHIP MANAGER: OCTAVIO Cook ANESTHESIA: Local anesthetic (50:50 mixture of 1 % lidocaine with epi and 0.5% marcaine plain) - 10ml total IMPLANTS: None EBL: 2 mL TOURNIQUET: None COMPLICATIONS: None evident INDICATIONS: The patient is a pleasant 89-year-old female who has experienced right hand numbess/tingling affecting the radial 3.5 digits for multiple months. It has progressively gotten worse. Nonoperative management has been tried and failed, and therefore surgery was recommended. DESCRIPTION OF PROCEDURE: Following a thorough discussion of risks, benefits, and alternatives consent was obtained and the operative extremity was marked. The patient was brought to the operating room and placed supine on the operating table. Local anesthesia induction was undertaken in preop holding. No antibiotics were administered as this was planned to be a local case only. Proper time-out was performed identifying proper patient, site, and procedure. The operative extremity was prepped and draped in the appropriate sterile fashion using ChloraPrep. An incision was made in line with the radial border of the ring finger beginning 1 cm distal to the distal wrist crease and progressing for another 2.5cm distal. Caution was taken to stay proximal to Gaviria's cardinal line. Sharp incision through the skin, subcutaneous tissue, and palmar fascia was performed. The thenar musculature was bluntly elevated off the transverse carpal ligament. The ligament was directly visualized, and divided sharply with a 15 blade. This was released from its most proximal to the most distal extent. Metzenbaum scissor was also utilized to release the fascia extension proximally. We confirmed complete release of the transverse carpal ligament. Closure was performed with 4-O nylon in interrupted fashion. Soft dressings were applied, and the patient was transferred to the recovery room in stable condition. PLAN: 1. Encourage elevation of the operative extremity. 2. Range of motion of the fingers and hand/wrist as tolerated. 3. Ibuprofen/acetaminophen and/or oxycodone as needed for pain control. 4. Follow up with PA visit or nurse visit in 12-16 days for wound check and suture removal.
[2024-11-17] MEDS: BACITRACIN OINTMENT BULK TUBE 1 APPLIC TOPICAL (07:35)
== END 2024-11-17 08:24 | disposition home or self-care (01) ==
LOC: OR 06:19
PROVIDERS: PCP Family Medicine; Visit Provider Orthopaedic Surgery Sports Medicine
PROC: (CPT 64721; principal; 2024-11-17 07:15)
DX: G56.01 Carpal tunnel syndrome, right upper limb (principal); Z79.4 Long term (current) use of insulin; E11.9 Type 2 diabetes mellitus without complications
CPT/HCPCS: 64721; 82962; J0665

== ENCOUNTER 2025-01-16 20:32 | Emergency (ER) | payer MEDICARE, SELFPAY ==
[2025-01-16 20:36] VITALS: BP 177/76; PULSE 85; RESP 16; TEMP 37.4; O2SAT 98; BMI 24.1
[2025-01-16 21:15] VITALS: PULSE 89; O2SAT 96
[2025-01-16 21:24] LABS: Hematocrit 33.6 % (33.0-51.0); Hemoglobin* 10.8 gm/dL (12.0-16.0); Immature Granulocytes Abs Auto 0.01 K/uL (0.00-0.30); Immature Granulocytes Pct Auto 0.2 %; Lymphocytes Percent Auto 12.6 % (20-44); Mean Corpuscular HGB Conc 32 gm/dL (32-36); Mean Corpuscular Hemoglobin 28 pg (26-34); Mean Corpuscular Volume 88 fL (80-100); Monocytes Percent Auto 10.2 % (0.0-11.0); Platelet Count* 235 K/uL (140-440); RDW Coefficient of Variation % 15.2 % (11.5-15.5); Red Blood Count 3.82 m/uL (4.00-5.20); White Blood Count* 5.49 K/uL (4.50-11.00)
[2025-01-16 21:31] LABS: Chloride* 99 mmol/L (96-114); Potassium* 4.2 mmol/L (3.6-5.1); Slide Review Reflex No; Sodium* 136 mmol/L (135-149)
--- NOTE | 2025-01-16 21:32 | ED.FALL ---
HPI - Fall General Date Seen: 01/16/25 Chief Complaint: Chest Pain Stated Complaint: fell, hit back of head, rib/chest Time Seen by Provider: 01/16/25 20:34 Source: patient Mode of arrival: ambulatory Limitations: no limitations History of Present Illness HPI Narrative: Patient is a 89-year-old female presenting to the emergency department for chest pain. She states earlier today around 16:30 a board broke on their patio and she fell through catching her right leg given hitting the back of her head on the house. She has been feeling well initially but is now having some chest pain that she notices worse with movement of her arms and palpation of the chest. She has not remember hitting her chest during the fall. No history of heart disease. Denies any history of blood clots. Pain is not worse with deep breaths. Denies headache, lightheadedness, dizziness, weakness, numbness, abdominal pain. Does states she has some mild pain in the back her head where she hit her head. Denies any neck pain. No other injuries noted some mild bruising to right elbow and right hernandez. Has been able to ambulate without issues. Related Data Home Medications ?Medication ?Instructions ?Recorded ?Confirmed aspirin 81 mg tablet,delayed 81 mg PO QDAY 08/09/23 01/16/25 release (Adult Low Dose Aspirin) atorvastatin 20 mg tablet 20 mg PO DAILY 08/09/23 01/16/25 blood sugar diagnostic ([employer] #10 ea 08/09/23 11/30/24 Verio test strips) insulin glargine 100 unit/mL (3 unit subcut 08/09/23 11/30/24 mL) subcutaneous pen (Lantus Solostar U-100 Insulin) lancets 33 gauge ([facility] ea 08/09/23 11/30/24 Plus Lancet) levothyroxine 75 mcg tablet 75 mcg PO DAILY 08/09/23 01/16/25 pen needle, diabetic 32 gauge x #1,200 ea 08/09/23 11/30/24 (BD Ivelisse 2nd Gen Pen Needle) insulin aspar prot-insulin aspart subcut 03/30/24 11/30/24 100 unit/mL (70-30) subcutaneous pen metformin 500 mg tablet,extended 1,000 mg PO ONCE 04/11/24 01/16/25 release 24 hr oxybutynin chloride 5 mg tablet 5 mg PO BID 08/24/24 01/16/25 trospium 20 mg tablet 20 mg PO BID 08/24/24 11/30/24 amlodipine 5 mg tablet mg PO DAILY 11/30/24 11/30/24 olmesartan 40 mg tablet mg 01/16/25 Allergies Allergy/AdvReac Type Severity Reaction Status Date / Time No Known Drug Allergies Allergy Verified 01/16/25 20:42 Review of Systems Status of ROS: Reports: 10 or more systems reviewed and unremarkable except as noted in History and below [facility] Medical History Afib ?I48.91 - Unspecified atrial fibrillation (ICD-10) Primary osteoarthritis of both knees ?M17.0 - Bilateral primary osteoarthritis of knee (ICD-10) Bilateral carpal tunnel syndrome ?G56.03 - Carpal tunnel syndrome, bilateral upper limbs (ICD-10) TIA (transient ischemic attack) (08/09/20) ?G45.9 - Transient cerebral ischemic attack, unspecified (ICD-10) Type 2 diabetes mellitus ?E11.9 - Type 2 diabetes mellitus without complications (ICD-10) Hypothyroidism ?E03.9 - Hypothyroidism, unspecified (ICD-10) Surgical History History of carpal tunnel surgery of right wrist (11/17/24) ?Z98.890 - Other specified postprocedural states (ICD-10) History of carpal tunnel release (09/01/24) ?Z98.890 - Other specified postprocedural states (ICD-10) History of hernia repair ?Z98.890 - Other specified postprocedural states (ICD-10) ?Z87.19 - Personal history of other diseases of the digestive system (ICD-10) History of hysterectomy ?Z90.710 - Acquired absence of both cervix and uterus (ICD-10) History of breast biopsy ?Z98.890 - Other specified postprocedural states (ICD-10) History of arthroscopy of left knee (03/01/15) ?Z98.890 - Other specified postprocedural states (ICD-10) Social History Smoking Status: Never smoker Do you use any of these nicotine containing products: None How often do you have a drink containing alcohol: 4 or more times a week How many standard drinks containing alcohol do you have on a typical day: 1 or 2 How often do you have six or more drinks on one occasion: Never AUDIT-C Alcohol total score: 4 Non-prescribed substance use: denies use service: No Exam Narrative: Exam Narrative: Const: Well-nourished, Well-developed, in mild distress Eyes: PERRL, no conjunctival injection, and symmetrical lids HENT: Atraumatic external nose and ears. Moist mucous membranes. Neck: Symmetric, trachea midline, No thyromegaly. CVS: RRR, No murmurs or gallops. Peripheral pulses 2+ and equal in all extremities RESP: Unlabored respiratory effort. Clear to auscultation bilaterally. GI: Nontender/Nondistended, No rebound or guarding. MSK:Extremities w/o deformity, Normal Active ROM, notable pain to palpation to her chest that reproduces her pain. No tenderness noted to rest of patient's extremities or back. No midline spinal tenderness. Skin: Warm, Dry. No rashes or lesions. Bruising noted to right elbow and right hernandez. Neuro: Normal Muscle tone, No focal neurological deficits. Psych: Awake, Alert, & Oriented x3. Appropriate mood and affect. Const: Vital Signs, click to edit/add: Vital Signs - 24 hr 01/16/25 20:36 01/16/25 21:15 01/16/25 21:33 Temperature 99.4 F Pulse Rate 89 80 Pulse Rate [Pulse Oximeter] 85 Respiratory Rate 16 18 Blood Pressure Blood Pressure [Ri ght Upper Arm] 177/76 H Pulse Oximetry 98 96 97 Oxygen Delivery Me thod Room Air 01/16/25 21:45 01/16/25 21:51 01/16/25 22:00 Temperature Pulse Rate 82 72 78 Pulse Rate [Pulse Oximeter] Respiratory Rate 13 11 L 13 Blood Pressure 149/79 H Blood Pressure [Ri ght Upper Arm] Pulse Oximetry 95 98 97 Oxygen Delivery Me thod Course Vital Signs Vital signs: Initial Vital Signs Temperature 99.4 F 01/16/25 20:36 Temperature Source Oral 01/16/25 20:36 Pulse Rate 85 01/16/25 20:36 Respiratory Rate 16 01/16/25 20:36 Blood Pressure 177/76 H 01/16/25 20:36 Blood Pressure Mean 109 H 01/16/25 20:36 Pulse Oximetry 98 01/16/25 20:36 Oxygen Delivery Method Room Air 01/16/25 20:36 Vital Signs Temperature 99.4 F 01/16/25 20:36 Pulse Rate 85 01/16/25 20:36 Respiratory Rate 16 01/16/25 20:36 Blood Pressure 177/76 H 01/16/25 20:36 Pulse Oximetry 98 01/16/25 20:36 Oxygen Delivery Method Room Air 01/16/25 20:36 Temperature 99.4 F 01/16/25 20:36 Pulse Rate 78 01/16/25 22:00 Respiratory Rate 13 01/16/25 22:00 Blood Pressure 149/79 H 01/16/25 21:51 Pulse Oximetry 97 01/16/25 22:00 Oxygen Delivery Method Room Air 01/16/25 20:36 MDM - Fall MDM Narrative Medical decision making narrative: Patient is a 89-year-old female presenting for chest pain. The differential diagnosis of chest pain is broad and includes common etiologies such as musculoskeletal strain, GERD, pneumonia, etc. More serious etiologies considered include PE, coronary artery disease, pneumothorax, aortic dissection, aortic aneurysm. Considering her history this is most likely musculoskeletal strain. Her pain is reproducible with palpation. Very low concern for serious life-threatening cause but will do an EKG and troponin to look for signs of ACS. Also CT scanner and her chest due to the chest pain make sure on all fractures. Will also scan her head and cervical spine due to the fall. Do not believe any further imaging is necessary as she is not having pain anywhere else at this time. CBC and BMP also ordered. Lab work shows no concerning abnormalities. EKG reviewed by myself shows no concerning findings. Troponin shows no concerning findings. Do not believe repeat troponin is necessary at this time the symptoms started after a fall. CT scans returned reviewed by myself and the radiologist. Head and cervical spine CT showed no concerning abnormalities. Her chest CT shows a very subtle cortical lucency that and may possibly be a nondisplaced sternal fracture. She is tender in this area. This time is likely a nondisplaced sternal fracture but does not appear to be bad enough that she needs to stay. She states her pain is tolerable and also states there is no way she would even want to be admitted for this as she was take care of her at home. States she has medication at home to take for pain is not the any further medication. On my review vital signs are stable throughout time in in the emergency department. Oximetry stayed in the mid to high 90s. communications tech showed no concerning arrhythmias. Will be discharged. Lab Data Labs: Lab Results 01/16/25 Range/Units 21:12 WBC 5.49 (4.50-11.00) K/uL RBC 3.82 L (4.00-5.20) m/uL Hgb 10.8 L (12.0-16.0) gm/dL Hct 33.6 (33.0-51.0) % MCV 88 (80-100) fL MCH 28 (26-34) pg MCHC 32 (32-36) gm/dL RDW Coeff of Genie 15.2 (11.5-15.5) % Plt Count 235 (140-440) K/uL Neut % (Auto) 77.0 H (42.0-72.0) % Lymph % (Auto) 12.6 L (20-44) % [place] % (Auto) 10.2 (0.0-11.0) % Eos % (Auto) 0.0 (0.0-7.0) % Baso % (Auto) 0.0 (0.0-3.0) % Neut # (Auto) 4.20 (1.7-7.0) K/uL Lymph # (Auto) 0.70 L (0.90-2.90) K/uL [place] # (Auto) 0.60 (0.00-0.90) K/UL Eos # (Auto) 0.00 (0.00-0.50) K/uL Baso # (Auto) 0.00 (0.00-0.30) K/uL Abs Immat Gran (auto) 0.01 (0.00-0.30) K/uL Imm/Tot Granulo (auto) 0.2 % Sodium 136 (135-149) mmol/L Potassium 4.2 (3.6-5.1) mmol/L Chloride 99 (96-114) mmol/L Carbon Dioxide 26 (20-32) mmol/L Anion Gap 11 (7-15) mEq/L BUN 17 (7-30) mg/dL Creatinine 0.8 (0.5-1.5) mg/dL Estimated Creat Clear 29.91 Estimated GFR 71 ml/min Glucose 217 H (60-115) mg/dL Calcium 9.2 (8.4-10.6) mg/dL Troponin I < 0.01 L (0.01-0.04) ng/mL Imaging Data CT scan - head: Attestation: I have reviewed the pertinent imaging results. Radiologist's impression: No acute intracranial abnormality on this noncontrast study. Moderate chronic white matter ischemic disease. Please note that all CT scans at this facility use dose modulation, iterative reconstruction, and/or weight-based dosing when appropriate to reduce radiation dose to as low as reasonably achievable. Dictated by Ghassan Mtz MD @ 01/16/2025 9:56:[address] scan - chest: Attestation: I have reviewed the pertinent imaging results. Radiologist's impression: Subtle cortical irregularity along the anterior sternum, possibly nondisplaced fracture in the setting of trauma. Recommend correlation with point tenderness. Otherwise, no acute intrathoracic abnormality. Coronary artery calcifications. Please note that all CT scans at this facility use dose modulation, iterative reconstruction, and/or weight-based dosing when appropriate to reduce radiation dose to as low as reasonably achievable. Dictated by Ghassan Mtz MD @ 01/16/2025 10:09:[address] scan cervical spine: Radiologist's impression: 1. No sign of acute injury. 2. Multilevel degenerative spondylosis. Please note that all CT scans at this facility use dose modulation, iterative reconstruction, and/or weight-based dosing when appropriate to reduce radiation dose to as low as reasonably achievable. Dictated by Ghassan Mtz MD @ 01/16/2025 9:58:36 PM ECG Data Attestation: I personally reviewed and interpreted this ECG as follows: Prior ECG tracings: not available for review Interpretation: Normal sinus rhythm with a rate of 88 beats per minute, normal intervals, normal axis, no ST or T-wave abnormalities. Discharge Plan Discharge Clinical Impression: Sternal fracture Qualifiers: Encounter type: initial encounter Sternal location: unspecified Fracture type: closed Qualified Code(s): S22.20XA - Unspecified fracture of sternum, initial encounter for closed fracture Patient Disposition: Home, Self-Care Condition: Stable Additional Instructions: Your CT scan shows what may be a very subtle start all fracture. Take your home pain medication for this. If he started developing chest pain or shortness of breath return for re-evaluation at this could be signs of worsening heart or lung issues from your injury. Prescriptions: No Action insulin glargine [Lantus Solostar U-100 Insulin] 100 unit/mL (3 mL) insulin pen subcut (DME) lancets [OneTouch [employer] Plus Lancet] 33 gauge misc See Rx Instructions .ROUTE .MEDSUPPLY Qty: 100 Patient Comments: [NO ORIGINAL SIG] Rx Instructions: As directed (DME) pen needle, diabetic [BD Ivelisse 2nd Gen Pen Needle] 32 gauge x 5/32 needle See Rx Instructions .ROUTE .MEDSUPPLY Qty: 1200 Patient Comments: [NO ORIGINAL SIG] Rx Instructions: As directed atorvastatin 20 mg tablet 20 mg PO DAILY levothyroxine 75 mcg tablet 75 mcg PO DAILY (DME) OneTouch Verio test strips Strip See Rx Instructions .ROUTE QID Qty: 10 Rx Instructions: As directed aspirin [Adult Low Dose Aspirin] 81 mg tablet,delayed release (DR/EC) 81 mg PO QDAY metformin 500 mg tablet extended release 24 hr 1,000 mg PO ONCE oxybutynin chloride 5 mg tablet 5 mg PO BID trospium 20 mg tablet 20 mg PO BID amlodipine 5 mg tablet PO DAILY olmesartan 40 mg tablet Patient Comments: [NO ORIGINAL SIG] insulin asp prt-insulin aspart 100 unit/mL (70-30) insulin pen SUBCUT Patient Comments: ADMINISTER 5 UNITS UNDER THE SKIN BEFORE BREAKFAST AND SUPPER MEALS Follow Up/Referrals: Adonis Aguilar MD [Primary Care Provider] - Stand Alone Forms: Social Pulse Info Instructions
[2025-01-16 21:33] VITALS: PULSE 80; RESP 18; O2SAT 97
[2025-01-16 21:34] LABS: Anion Gap 11 mEq/L (7-15); Blood Urea Nitrogen* 17 mg/dL (7-30); Calcium* 9.2 mg/dL (8.4-10.6); Carbon Dioxide* 26 mmol/L (20-32); Creatinine* 0.8 mg/dL (0.5-1.5); Est. Creatinine Clearance* 29.91; Estimated Glomerular Filt Rate 71 ml/min; Glucose* 217 mg/dL (60-115)
[2025-01-16 21:45] VITALS: PULSE 82; RESP 13; O2SAT 95
[2025-01-16 21:47] LABS: Troponin I* < 0.01 ng/mL (0.01-0.04)
[2025-01-16 21:51] VITALS: BP 149/79; PULSE 72; RESP 11; O2SAT 98
[2025-01-16 22:00] VITALS: PULSE 78; RESP 13; O2SAT 97
== END 2025-01-16 22:31 | disposition home or self-care (01) ==
PROVIDERS: Emergency Provider Student in an Organized Health Care Education/Training Program; PCP Family Medicine
DX: S22.20XA Unspecified fracture of sternum, initial encounter for closed fracture (principal); W01.10XA Fall on same level from slipping, tripping and stumbling with subsequent striking against unspecified object, initial encounter
CPT/HCPCS: 36415; 70450; 71250; 72125; 80048; 84484; 85025; 93005; 99284; 99285

== ENCOUNTER 2025-01-22 22:35 | Emergency (ER) | payer MEDICARE, SELFPAY ==
[2025-01-22 22:37] VITALS: BP 182/75; PULSE 84; RESP 16; TEMP 36.4; O2SAT 99; BMI 23.6
--- OUTSIDE RECORDS SUMMARY | 2025-01-22 22:37 | XMS_ITS | Clinical Summary ---
Author Organization [facility] Address [address] [place] [address] Care Team Providers Care Wood Carver Name Role Phone Raymond Arevalo Unavailable Adonis Aguilar MD Primary Care Provider Allergies No known active allergies Medications zinc 50 mg tablet Twice weekly 0 11/15/19 15 Active calcium carbonate-vitamin D3, 500 mg-400 units, (OSCAL 500 + [...] 24 hrs. 0 01/11/20 17 Active blood-glucose meterIndications: Diabetes mellitus type 2, noninsulin dependent (HC) Dispense meter, test strips, lancets covered by pt ins. E11.9 NIDDM type II - Test 1 time/day 1 Device 03/03/20 18 Active aspirin (ECOTRIN) 81 mg enteric coated tablet Take 1 tablet by mouth once daily with a meal. 0 08/11/20 20 Active cyanocobalamin (VITAMIN B12) 1,000 mcg tabletIndications :Vitamin B12 deficiency TAKE 1 TABLET BY MOUTH EVERY DAY 90 Tablet 1 08/23/20 21 Active Additional Information Patient taking differently: 100 mcgOral DAILY, Reported on 01/20/2025 lancets (OneTouch Delica Plus Lancet) 33 gauge miscIndications:D iabetes mellitus type 2, noninsulin dependent (HC) USE TO TEST TWICE DAILY 200 Each 3 01/22/20 23 Active FreeStyle Tony 3 Sensor for continuous blood glucose monitor (CGM)Indications: Controlled type 2 diabetes mellitus without complication, without long-term current use of insulin (HC) To be used to read blood sugars, follow cashier supervisor directions. Change each sensor every 14 days 6 Each 3 04/12/20 24 Active pen needle (BD Ivelisse 2nd Gen Pen Needle) 32 gauge x 5/32 (disposable insulin pen needle)Indication s:Controlled type 2 diabetes mellitus with complication, with long-term current use of insulin (HC) As directed 4 to 6 times daily after meals, at bedtime and as needed. 400 Each 3 06/28/20 24 Active FreeStyle Tony 3 [place] for continuous blood glucose monitor (CGM)Indications: Controlled type 2 diabetes mellitus without complication, without long-term current use of insulin (HC) To be used to read blood sugars follow cashier supervisor directions. 1 Each 08/06/20 24 Active blood sugar diagnostic (OneTouch Verio test strips) stripIndications: Diabetes mellitus type 2 with complications (HC) USE TO TEST 3-4 TIMES DAILY 300 Each 3 08/18/20 24 Active oxybutynin (DITROPAN) 5 mg tabletIndications :OAB (overactive bladder) Take 1 Tablet (5 mg) by mouth two times daily. 180 Tablet 3 08/18/20 24 Active FreeStyle Tony 3 Plus Sensor for continuous blood glucose monitor (CGM)Indications: Controlled type 2 diabetes mellitus without complication, without long-term current use of insulin (HC) To be used to read blood sugars, follow cashier supervisor directions. 6 Each 3 09/09/20 24 Active insulin aspart, U-100, (NOVOLOG FLEXPEN) 100 unit/mL (3 mL) penIndications:Co ntrolled type 2 diabetes mellitus without complication, without long-term current use of insulin (HC) ADMINISTER 4 TO 8 UNITS UNDER THE SKIN BEFORE MEALS 9 mL 1 09/29/20 24 Active estradioL (ESTRACE) 0.01% (0.1 mg/g) vaginal creamIndications: Post-menopausal atrophic vaginitis Place a small amount to the outside of vaginal and labia at bedtime. 42.5 g 3 10/11/20 24 Active clotrimazole-beta methasone 1%-0.05% creamIndications: Post-menopausal atrophic vaginitis Apply topically to affected area(s) two times daily. 15 g 10/11/20 24 Active atorvastatin (LIPITOR) 20 mg tabletIndications :Controlled type 2 diabetes mellitus without complication, without long-term current use of insulin (HC) Take 1 Tablet (20 mg) by mouth once daily. 90 Tablet 3 11/26/19 25 Active Lantus Solostar U-100 Insulin 100 unit/mL (3 mL) penIndications:Co ntrolled type 2 diabetes mellitus without complication, without long-term current use of insulin (HC) Inject 4 units subcutaneous before bedtime. Product desired: LANTUS SOLOSTAR 15 mL 1 11/26/19 25 Active levothyroxine (SYNTHROID) 100 mcg tabletIndications :Hypothyroidism, unspecified type Take 1 Tablet (100 mcg) by mouth before breakfast. 90 Tablet 3 11/26/19 25 Active olmesartan (BENICAR) 40 mg tabletIndications :Benign essential HTN Take 1 Tablet (40 mg) by mouth once daily. 90 Tablet 3 11/26/19 25 Active amLODIPine (NORVASC) 5 mg tabletIndications :Benign essential HTN Take 1 Tablet (5 mg) by mouth once daily. 90 Tablet 3 11/26/19 25 Active metFORMIN (GLUCOPHAGE XR) 500 mg Extended-Release tabletIndications :Controlled type 2 diabetes mellitus without complication, without long-term current use of insulin (HC) TAKE 4 TABLETS(2000 MG) BY MOUTH EVERY DAY WITH THE EVENING MEAL 360 Tablet 12/01/19 25 Active cyanocobalamin (VITAMIN B12) 1,000 mcg tabletIndications :Vitamin B 12 deficiency Take 1 Tablet (1,000 mcg) by mouth once daily. 90 Tablet 3 12/22/19 25 Active ferrous sulfate 325 mg delayed release tabletIndications :Iron deficiency anemia, unspecified iron deficiency anemia type Take 1 Tablet (325 mg) by mouth once every other day. 45 Tablet 3 01/22/20 25 Active nirmatrelvir-vanna navir 300-100mg (PAXLOVID, EUA,) tabletIndications :COVID-19 virus infection Take 2 nirmatrelvir 150 mg pink-oval tablets and 1 ritonavir 100 mg white-oval tablet together twice daily for 5 days. 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. MRI head performed 08/10/20; awaiting results. Patient started on Eliquis 2.5 mg PO BID and Asa 81 mg PO QD. Urinary incontinence 06/12/2020 Benign essential HTN 02/08/2019 Controlled type 2 diabetes m ellitus with complication, with long-term current use of [...] Encounters Date Type Department Care Team Description 01/21/2025 Telephone [facility] [address] [place] [address] Adonis Aguilar MD Results 01/20/2025 9:45 AM CDT Office Visit [facility] [address] [place] [address] Adonis Aguilar MD Hospital F/U (Fell and hit her head) 01/20/2025 Travel 01/16/2025 Orders Only [facility] Scanner 1 scan: (1-Ord) [facility] CT CHEST WO, 01/16/2025 01/16/2025 Orders Only [facility] Scanner 1 scan: (1-Ord) [place], CT HEAD/BRAIN WO CON, 01/16/2025 01/16/2025 Orders Only [facility] Scanner 1 scan: (1-Ord) [facility], CT CERVICAL SPINE WO, 01/16/2025 12/23/2024 2:05 PM COMPUTER REPAIR TECHNICIAN Phone Office Visit [facility] [address] [place] [address] Adonis Aguilar MD Telehealth (Phone visit-covid) 12/23/2024 Nurse Triage [facility] [address] [place] [address] Adonis Aguilar MD Error-please disregard 12/22/2024 8:25 AM COMPUTER REPAIR TECHNICIAN Office Visit [address] [place] [address] Adonis Aguilar MD Hypertension Care Management; Medication Management (B12 levels and treatment) 12/22/2024 Travel 11/29/2024 Refill [facility] [address] [place] [address] Adonis Aguilra MD Refill Request (Metformin) 11/26/2024 8:25 AM COMPUTER REPAIR TECHNICIAN Office Visit [address] [place] [address] Adonis Aguilar MD Diabetes (3 month follow up) 11/26/2024 8:00 AM COMPUTER REPAIR TECHNICIAN Orders Only [address] [place] [address] Lab, [facility] 11/26/2024 Travel 11/05/2024 11:20 AM COMPUTER REPAIR TECHNICIAN Office Visit [address] [place] [address] Adonis Aguilar MD Follow Up (Blood pressure medication change) 11/05/2024 Travel 10/26/2024 2:30 PM COMPUTER REPAIR TECHNICIAN Office Visit [address] [place] [address] Adonis Aguilar MD Blood Pressure (Elevated blood pressure past 3 days) 10/26/2024 Travel 10/25/2024 Telephone [facility] [address] [place] [address] Adonis Aguilar MD High Blood Pressure 10/25/2024 Nurse Triage [facility] [address] [place] [address] Adonis Aguilar MD High Blood Pressure from Last 3 Months Immunizations Immunization Administration Dates Next Due Amb Influenza, Inact (Intrad ermal)(age 18-64 Yrs)(Flu Clinic Only) 09/08/2012 COVID-19 VACCINE SPIKEVAX (M ODERNA 50MCG/0.5ML) 12YO+ PFS 07/26/2024,05/17/2024,08/07/2023 COVID-19 vaccine (CustEx NTech 30mcg/0.3mL) 12YO+ BIVALENT PF, MDV 04/24/2023,08/08/2022 COVID-19 vaccine (JetSuite-Bio NTech 30mcg/0.3mL) PF, MDV 01/06/2021,12/16/2020 Influenza A [...] 5 oz wine 4 times a week PHQ-2 Answer Date Recorded PHQ-2 TOTAL SCORE [...] is your housing situation today? 1 07/26/2024 Utilities Answer Date Recorded Do you have trouble paying f or utilities (for example, heat, electricity, water, phone)? 1 07/26/2024 Comments No Sex and Gender Information Value Date Recorded Sex Assigned at Not on file Legal Sex Female 6:28 AM COMPUTER REPAIR TECHNICIAN Gender Identity Not on file Sexual Orientation [...] Sign Reading Time Taken Comments Blood Pressure 133/65 01/20/2025 9:41 AM CDT Pulse 75 01/20/2025 9:41 AM CDT Temperature 36.8 C (98.3 F) 04/26/2024 10:37 AM CDT Respiratory Rate 18 09/21/2021 10:47 AM COMPUTER REPAIR TECHNICIAN Oxygen Saturation 99% 01/20/2025 9:41 AM CDT Inhaled Oxygen Concentration - - Weight 56.7 kg (125 lb) 01/20/2025 9:41 AM CDT Height 153.6 cm (5' 0.47) 08/18/2024 9:40 AM CD T Body Mass Index 24.03 08/18/2024 9:40 AM CDT Plan of Treatment Upcoming Encounters Date Type Department Care Team (Late st Contact Info) Description 02/03/2025 7:40 AM CDT Office Visit [facility] [address] [place] [address] Adonis Aguilar MD [address] [place] [address] 05/23/2025 10:05 AM CDT Office Visit [facility] [address] [place] [address] Adonis Aguilar MD [address] [place] [address] Health Maintenance Due Date Last Done Comments COVID-19 vaccine series ( season) 2025 07/26/2024, 05/17/2024, 08/07/2023, Additional history exists BMI (ht and wt on same day) [...] vaccine for adults or Completed 08/16/2023 Influenza Vaccine Completed 07/21/2024, , 08/08/2022, Additional history exists Procedures Procedure Name Priority Date/Time Associated Diagnosis Comments VITAMIN B12 Routine 01/20/2025 10:27 AM CDT Anemia of unknown etiology IRON PLUS IRON BINDING CAP Routine 01/20/2025 10:27 AM CDT Anemia of unknown etiology FERRITIN Routine 01/20/2025 10:27 AM CDT Anemia of unknown etiology HEMOGLOBIN Routine 01/20/2025 10:27 AM CDT Anemia of unknown etiology SCAN-CT INTERPRETATION 5 12:00 AM COMPUTER REPAIR TECHNICIAN SCAN-CT INTERPRETATION 5 12:00 AM COMPUTER REPAIR TECHNICIAN SCAN-CT INTERPRETATION 5 12:00 AM COMPUTER REPAIR TECHNICIAN HEMOGLOBIN A1C MONITORING (POCT) Routine 11/26/2024 7:59 AM COMPUTER REPAIR TECHNICIAN Controlled type 2 diabetes mellitus with complication, with long-term current use of insulin (HC) BASIC METABOLIC PANEL Routine 11/26/2024 7:58 AM COMPUTER REPAIR TECHNICIAN Controlled type 2 diabetes mellitus without complication, without long-term current use of insulin (HC) LIPID PANEL W REFLEX MEASURED LDL Routine 11/26/2024 7:58 AM COMPUTER REPAIR TECHNICIAN Controlled type 2 diabetes mellitus with complication, with long-term current use of insulin (HC) VITAMIN B12 Routine 11/26/2024 7:58 AM COMPUTER REPAIR TECHNICIAN Vitamin B12 deficiency TSH WITH REFLEX Routine 11/26/2024 7:58 AM COMPUTER REPAIR TECHNICIAN Acquired hypothyroidism XR DXA BONE DENSITY 2 SITES AXIAL Routine 01/08/2021 8:52 AM COMPUTER REPAIR TECHNICIAN Post-menopausal from Last 3 Months or Most Recently Relevant to Health Maintenance Results * IRON PLUS IRON BINDING CAP (01/20/2025 10:27 AM CDT) IRON, TOTAL 54 45 - 160 mcg/dL [facility] IRON BINDING CAPACITY 348 250 - 450 mcg/dL (calc) [facility] % SATURATION 16 16 - 45 % (calc) [facility] Blood BLOOD SPECIMEN / Unknown 01/20/2025 10:27 AM CDT 01/20/2025 10:27 AM CDT us Adonis Aguilar MD CHEMISTRY Final Result Six Degrees of Data [facility] [address] [place] [address], [facility] [address] [place] [address] * (ABNORMAL) HEMOGLOBIN (01/20/2025 10:27 AM CDT) HEMOGLOBIN 11.1(L) 11.7 - 15.5 g/dL [facility] Blood BLOOD SPECIMEN / Unknown 01/20/2025 10:27 AM CDT 01/20/2025 10:27 AM CDT us Adonis Aguilar MD HEMATOLOGY Final Result [facility] [address] [facility] [place] [address], [place] [phone] [facility] [address] [facility] [place] [address] * (ABNORMAL) FERRITIN (01/20/2025 10:27 AM CDT) FERRITIN 12(L) 16 - 288 ng/mL [facility] [place] Blood BLOOD SPECIMEN / Unknown 01/20/2025 10:27 AM CDT 01/20/2025 10:27 AM CDT us Adonis Aguilar MD CHEMISTRY Final Result Performing Organization Address City/[facility]/ZIP Co de Phone Number [facility] [address] [facility] [place] [address], [place] [phone] [facility] [address] [facility] [place] [facility] [place] [place] [address] * (ABNORMAL) VITAMIN B12 (01/20/2025 10:27 AM CDT) Only the most recent of2 resultswithin the time period is included. VITAMIN B12 1,197(H) 200 - 1,100 pg/mL [facility] Blood BLOOD SPECIMEN / Unknown 01/20/2025 10:27 AM CDT 01/20/2025 10:27 AM CDT us Adonis Aguilar MD CHEMISTRY Final Result [facility] [address] [place] [address], [place] [phone] [facility] [address] [place] [address] * SCAN-CT INTERPRETATION (01/16/2025 12:00 AM COMPUTER REPAIR TECHNICIAN) Only the most recent of3 resultswithin the time period is included. Anatomical Region Laterality Modality Other us Scanner OTHER Final Result * (ABNORMAL) HEMOGLOBIN A1C MONITORING (POCT) (11/26/2024 7:59 AM COMPUTER REPAIR TECHNICIAN) Pathologist [facility] POC HEMOGLOBIN A1C 8.0(H) <6.0 % OF TOTAL HGB [facility] Comment: Any point of care results exhibiting inconsistency with the patient's clinical status should be repeated using a different testing method. Blood BLOOD SPECIMEN / Unknown 11/26/2024 7:59 AM COMPUTER REPAIR TECHNICIAN 11/26/2024 7:59 AM COMPUTER REPAIR TECHNICIAN us Adonis Aguilar MD CHEMISTRY Final Result [facility] [address] [place] [address], [place] [phone] [facility] [address] [place] [address] * TSH WITH REFLEX (11/26/2024 7:58 AM COMPUTER REPAIR TECHNICIAN) Pathologist [facility] TSH W/REFLEX TO FT4 2.86 0.40 - 4.50 mIU/L [facility] Blood BLOOD SPECIMEN / Unknown 11/26/2024 7:58 AM COMPUTER REPAIR TECHNICIAN 11/26/2024 7:58 AM COMPUTER REPAIR TECHNICIAN Adonis Aguilar MD CHEMISTRY Final Result [facility] [address] [facility] [address], [place] [phone] [facility] [address] [place] [address] * LIPID PANEL W REFLEX MEASURED LDL (11/26/2024 7:58 AM COMPUTER REPAIR TECHNICIAN) CHOLESTEROL, TOTAL 142 <200 mg/dL [facility] HDL CHOLESTEROL 72 > OR = 50 mg/dL [facility] TRIGLYCERIDES 62 <150 mg/dL [facility] LDL-CHOLESTEROL 56 mg/dL (calc) [facility] Comment: Reference range: <100 Desirable range <100 mg/dL for primary prevention; <70 mg/dL for patients with CHD or diabetic patients with > or = 2 CHD risk factors. LDL-C is now calculated using the Taryn calculation, which is a validated novel method providing better accuracy than the Friedewald equation in the estimation of LDL-C. David SS et al. KAREN. 2013;310(19): 2732-4078 (http://education.Cozmik Body/faq/JIO114) CHOL/HDLC RATIO 2.0 <5.0 (calc) [facility] NON HDL CHOLESTEROL 70 <130 mg/dL (calc) [facility] Comment: For patients with diabetes plus 1 major ASCVD risk factor, treating to a non-HDL-C goal of <100 mg/dL (LDL-C of <70 mg/dL) is considered a therapeutic option. Blood BLOOD SPECIMEN / Unknown 11/26/2024 7:58 AM COMPUTER REPAIR TECHNICIAN 11/26/2024 7:58 AM COMPUTER REPAIR TECHNICIAN Adonis Aguilar MD CHEMISTRY Final Result Six Degrees of Data [facility] [address] [place] [address], [facility] [address] [place] [address] * (ABNORMAL) BASIC METABOLIC PANEL (11/26/2024 7:58 AM COMPUTER REPAIR TECHNICIAN) GLUCOSE 148(H) 65 - 99 mg/dL [facility] Comment: Fasting reference interval For someone without known diabetes, a glucose value >125 mg/dL indicates that they may have diabetes and this should be confirmed with a follow-up test. UREA NITROGEN (BUN) 17 7 - 25 mg/dL [facility] CREATININE 0.79 0.60 - 0.95 mg/dL [facility] EGFR 72 > OR = 60 mL/min/1. 73m2 [facility] BUN/CREATININE RATIO SEE NOTE: 6 - 22 (calc) [facility] Comment: Not Reported: BUN and Creatinine are within reference range. SODIUM 139 135 - 146 mmol/L [facility] POTASSIUM 4.3 3.5 - 5.3 mmol/L [facility] CHLORIDE 99 98 - 110 mmol/L [facility] CARBON DIOXIDE 32 20 - 32 mmol/L [facility] ELECTROLYTE BALANCE 8 7 - 17 mmol/L (calc) [facility] CALCIUM 9.4 8.6 - 10.4 mg/dL [facility] Blood BLOOD SPECIMEN / Unknown 11/26/2024 7:58 AM COMPUTER REPAIR TECHNICIAN 11/26/2024 7:58 AM COMPUTER REPAIR TECHNICIAN us Adonis Aguilar MD CHEMISTRY Final Result Six Degrees of Data [facility] [address] [place] [address], [facility] [address] [place] [phone] * (ABNORMAL) XR DXA BONE DENSITY 2 SITES AXIAL (01/08/2021 8:52 AM COMPUTER REPAIR TECHNICIAN) Anatomical Region Laterality Modality Spine, HIPS, HIPL, HIPR Other Impressions 01/12/2021 4:27 PM COMPUTER REPAIR TECHNICIAN Osteopenia. RECOMMENDATIONS: The National Osteoporosis Foundation recommends [...] recommended in 2 years. Joyce Rome PA-C [facility] 01/12/2021 Narrative 01/12/2021 4:27 PM COMPUTER REPAIR TECHNICIAN XR DXA Bone Mineral Density (BMD) EXAM LOCATION: [facility] [address] [facility] [address] PATIENT NAME: Naomy Coburn DATE OF : 1935 EXAM DATE: 01/08/2021 REQUESTING PROVIDER: Adonis Aguilar MD GENDER AT : female HEIGHT: 5' 0.63 (12/14/2020) WEIGHT: 113 lb (01/03/2021) MENOPAUSAL STATUS: Postmenopausal RACE/ETHNICITY: White RISK FACTORS: ADVANCED AGE CURRENT MEDICATION FOR BONE LOSS: NONE INDICATION: FOLLOW UP OF EXISTING OSTEOPENIA COMPARISON DATE(S): 2015 DXA scans are compared to prior studies for a patient only when the two (or more) studies were performed on the same scanner. It is not possible to compare data generated on one scanner to data from another because there are not standards in DXA equipment. This applies even if the two scanners are made by the same cashier supervisor. PROCEDURE: Dual-energy x-ray absorptiometry performed with routine [...] Osteoporosis: T-score at or below -2.5 SD us Adonis Aguilar MD DEXA Final Result from Last 3 Months or Most Recently Relevant to Health Maintenance Insurance MEDICARE PART B HB ONLY MEDICARE PART A HB ONLY [facility] MEDICARE ADVANTAGE MR Advance Directives Documents on File Type Date Recorded Patient Occupational Therapy Program Director Expl anation Healthcare Directive 01/14/2022 10:01 AM HE ALTHCARE DIRECTIVE, 12/04/21 Healthcare Directive 10/29/2012 2:36 PM H [facility] CARE DIRECTIVE, [facility], 12/26/10 Care Teams Wood Carver Relationship Specialty Start Date End Date Adonis Aguilar MD [address] [place] [address] PCP - General Family Practice 08/31/15 Raymond Arevalo [address] [place] [address] Ophthalmology Surgery 10/23/11
--- NOTE | 2025-01-22 22:55 | ED_ITS ---
HPI - General Adult General Time Seen by Provider: 22:57 Date Seen: 01/22/25 Chief complaint: Chest Pain Stated complaint: chest pain Time Seen by Provider: 01/22/25 22:54 Source: patient, RN notes reviewed and old records reviewed Mode of arrival: ambulatory Limitations: no limitations History of Present Illness HPI narrative: This 89-year-old female is coming into the ER with worsening anterior chest pain. She has been diagnosed with a probable sternal fracture in her anterior chest, had a fall and was evaluated on January 16. There was a subtle cortical irregularity in a noncontrast chest CT. She was complaining of chest wall pain. She did follow-up with Dr. Aguilar this week. She has been taking Tylenol, had a few leftover Tylenol No. 3 from a dental procedure. She took 1 extra Strength Tylenol this morning, 1 at noon with a half of a Tylenol No. 3, took another dose of the same this evening. The pain is worsening, hurts with every breath. Attempting to move her arms at all really hurts in her chest. If she puts her arms down to get up, any movement or attempts to do things with her arms hurts in her chest wall. She is not coughing, no fevers. She had negative head and neck imaging on January 16. She does let me know that she is diabetic. Related Data Home Medications ?Medication ?Instructions ?Recorded ?Confirmed aspirin 81 mg tablet,delayed 81 mg PO QDAY 08/09/23 01/16/25 release (Adult Low Dose Aspirin) atorvastatin 20 mg tablet 20 mg PO DAILY 08/09/23 01/16/25 blood sugar diagnostic (Clearpath ImmigrationTouch #10 ea 08/09/23 11/30/24 Verio test strips) insulin glargine 100 unit/mL (3 unit subcut 08/09/23 11/30/24 mL) subcutaneous pen (Lantus Solostar U-100 Insulin) lancets 33 gauge (Fontactouch Delsorin #100 ea 08/09/23 11/30/24 Plus Lancet) levothyroxine 75 mcg tablet 75 mcg PO DAILY 08/09/23 01/16/25 pen needle, diabetic 32 gauge x #1,200 ea 08/09/23 11/30/24/32 (BD Ivelisse 2nd Gen Pen Needle) insulin aspar prot-insulin aspart subcut 03/30/24 11/30/24 100 unit/mL (70-30) subcutaneous pen metformin 500 mg tablet,extended 1,000 mg PO ONCE 04/11/24 01/16/25 release 24 hr oxybutynin chloride 5 mg tablet 5 mg PO BID 08/24/24 01/16/25 trospium 20 mg tablet 20 mg PO BID 08/24/24 11/30/24 amlodipine 5 mg tablet mg PO DAILY 11/30/24 11/30/24 olmesartan 40 mg tablet mg 01/16/25 Allergies Allergy/AdvReac Type Severity Reaction Status Date / Time No Known Drug Allergies Allergy Verified 01/22/25 23:52 Review of Systems Status of ROS: Reports: 6 or more systems reviewed and unremarkable except as noted in History and below [facility] Medical History Afib ?I48.91 - Unspecified atrial fibrillation (ICD-10) Primary osteoarthritis of both knees ?M17.0 - Bilateral primary osteoarthritis of knee (ICD-10) Bilateral carpal tunnel syndrome ?G56.03 - Carpal tunnel syndrome, bilateral upper limbs (ICD-10) TIA (transient ischemic attack) (08/09/20) ?G45.9 - Transient cerebral ischemic attack, unspecified (ICD-10) Type 2 diabetes mellitus ?E11.9 - Type 2 diabetes mellitus without complications (ICD-10) Hypothyroidism ?E03.9 - Hypothyroidism, unspecified (ICD-10) Surgical History History of carpal tunnel surgery of right wrist (11/17/24) ?Z98.890 - Other specified postprocedural states (ICD-10) History of carpal tunnel release (09/01/24) ?Z98.890 - Other specified postprocedural states (ICD-10) History of hernia repair ?Z98.890 - Other specified postprocedural states (ICD-10) ?Z87.19 - Personal history of other diseases of the digestive system (ICD-10) History of hysterectomy ?Z90.710 - Acquired absence of both cervix and uterus (ICD-10) History of breast biopsy ?Z98.890 - Other specified postprocedural states (ICD-10) History of arthroscopy of left knee (03/01/15) ?Z98.890 - Other specified postprocedural states (ICD-10) Social History Smoking Status: Never smoker Do you use any of these nicotine containing products: None How often do you have a drink containing alcohol: 4 or more times a week How many standard drinks containing alcohol do you have on a typical day: 1 or 2 How often do you have six or more drinks on one occasion: Never AUDIT-C Alcohol total score: 4 Non-prescribed substance use: denies use service: No Exam Const: Vital Signs, click to edit/add: Vital Signs - 24 hr 01/22/25 22:37 Temperature 97.6 F Pulse Rate [Right Pulse Oximeter] 84 Respiratory Rate 16 Blood Pressure [Le ft Upper Arm] 182/75 H Pulse Oximetry 99 Oxygen Delivery Me thod Room Air This 89-year-old female is alert, interactive, no apparent distress but looks like she does not feel comfortable. Sclera clear, face atraumatic, able to speak in complete sentences. She is breathing shallowly but lung sounds are clear. CV sounds regular, no murmur, normal S1-S2, no S3-S4 heard. She is tender along the mid sternum but there is no step-off, no overlying ecchymosis or skin changes. Abdomen is soft, nontender, nondistended, no organomegaly noted. Neurovascular is intact in her hands, she prefers to keep her arms along her side as movement of her arms causes her chest discomfort. She has no lower extremity edema. Documenting provider has reviewed patient's vital signs: yes Course Course ED Course: This is a patient with a probable sternal fracture from a fall on January 16. Have reviewed with her that I do think we should reimage but we will do so with chest CT with IV contrast to better look at underlying structures. She will be on pulse oximetry. EKG has been obtained, will get updated troponin but doubt any underlying cardiac issues from her fall prior. Will try some IV fentanyl and premedicate with Zofran. Will update some basic labs. Reevaluation(s) Time of Reevaluation #1: 00:25 Reevaluation #1: Nursing staff had asked about some Toradol for this patient. Unfortunately her creatinine clearance is too low and NSAIDs really are contraindicated. She has use oxycodone for wrist surgeries before. She does have a pill cutter at home. We discussed the problem with Tylenol No. 3 is it really does mess up the dosing for regular Tylenol. All narcotics can be constipating and she is aware of that. She really wants to go home, needs to go home to care for her . We need to wait CT scan results. Will give her a dose of 2.5 mg oxycodone now. Time of Reevaluation #2: 01:00 Reevaluation #2: Patient does have about 8 or 9 tablets of oxycodone, 5 mg tablets at home. She has a pill cutter at home, will have her take half tablet. She understands that this is going to probably be weeks if not up to couple months for full resolution of pain. Have discussed hospitalization and transfer to [place], she is adamant that she is returning home. We have discussed pain management at length. Will discharge her to home at her request. Consultations Consultation #1: Have contacted [facility] [place] and spoke with Dr. Camacho. We reviewed patient's case, her initial injury on January 16, ongoing pain and a CT findings tonight. He states that it is really reassuring that there is no retrosternal hematoma, no other traumatic injury seen in the lung like pneumothorax and her EKG and troponin are normal. These are usually managed non operatively. He would recommend pain management. If patient which use, they are happy to take her and admit her for pain control, could see physical therapy there. He did state if we were comfortable she could be offered pain control and admission here. I did review with him that I think she has no interest in being admitted, plans to discharge to home. He does agree with increased pain management for her. I will certainly let them know if she would decide transfer there but highly doubt that as a possibility at this time. Time: 00:56 Vital Signs Vital signs: Initial Vital Signs Temperature 97.6 F 01/22/25 22:37 Temperature Source Temporal Artery Scan 01/22/25 22:37 Pulse Rate 84 01/22/25 22:37 Pulse Rhythm Regular 01/22/25 22:37 Respiratory Rate 16 01/22/25 22:37 Blood Pressure 182/75 H 01/22/25 22:37 Blood Pressure Mean 110 H 01/22/25 22:37 Blood Pressure Position Sitting 01/22/25 22:37 Pulse Oximetry 99 01/22/25 22:37 Oxygen Delivery Method Room Air 01/22/25 22:37 Vital Signs Temperature 97.6 F 01/22/25 22:37 Pulse Rate 84 01/22/25 22:37 Respiratory Rate 16 01/22/25 22:37 Blood Pressure 182/75 H 01/22/25 22:37 Pulse Oximetry 99 01/22/25 22:37 Oxygen Delivery Method Room Air 01/22/25 22:37 Temperature 97.6 F 01/22/25 22:37 Pulse Rate 84 01/22/25 22:37 Respiratory Rate 16 01/22/25 22:37 Blood Pressure 182/75 H 01/22/25 22:37 Pulse Oximetry 99 01/22/25 22:37 Oxygen Delivery Method Room Air 01/22/25 22:37 Medications Administered Medications: Generic Name Dose Route Start Last Admin Trade Name Jj PRN Reason Stop Dose Admin Oxycodone HCl 2.5 mg 01/23/25 00:27 01/23/25 00:34 Oxycodone 5 Mg Tablet PO 01/23/25 00:28 2.5 mg ONCE ONE Administration Discontinued Medications Generic Name Dose Route Start Last Admin Trade Name Jj PRN Reason Stop Dose Admin Fentanyl 25 mcg 01/22/25 23:05 01/22/25 23:23 Fentanyl 100 Mcg/2 Ml Inj IVP 01/22/25 23:06 25 mcg ONCE ONE Administration Ondansetron HCl 4 mg 01/22/25 23:05 01/22/25 23:23 Ondansetron 2 Mg/Ml Inj IVP 01/22/25 23:06 4 mg ONCE ONE Administration Medical Decision Making Lab Data Lab results reviewed: Yes I reviewed the patient's lab results Labs: Lab Results 01/22/25 01/22/25 Range/Units 22:45 22:45 WBC 4.42 L (4.50-11.00) K/uL RBC 3.89 L (4.00-5.20) m/uL Hgb 11.1 L (12.0-16.0) gm/dL Hct 34.9 (33.0-51.0) % MCV 90 (80-100) fL MCH 29 (26-34) pg MCHC 32 (32-36) gm/dL RDW Coeff of Genie 15.5 (11.5-15.5) % Plt Count 285 (140-440) K/uL Neut % (Auto) 62.5 (42.0-72.0) % Lymph % (Auto) 24.7 (20-44) % Cameron % (Auto) 11.5 H (0.0-11.0) % Eos % (Auto) 0.0 (0.0-7.0) % Baso % (Auto) 0.2 (0.0-3.0) % Neut # (Auto) 2.80 (1.7-7.0) K/uL Lymph # (Auto) 1.10 (0.90-2.90) K/uL Cameron # (Auto) 0.50 (0.00-0.90) K/UL Eos # (Auto) 0.00 (0.00-0.50) K/uL Baso # (Auto) 0.00 (0.00-0.30) K/uL Abs Immat Gran (auto) 0.00 (0.00-0.30) K/uL Imm/Tot Granulo (auto) 1.1 % Sodium 136 (135-149) mmol/L Potassium 4.2 (3.6-5.1) mmol/L Chloride 98 (96-114) mmol/L Carbon Dioxide 27 (20-32) mmol/L Anion Gap 11 (7-15) mEq/L BUN 17 (7-30) mg/dL Creatinine 0.8 (0.5-1.5) mg/dL Estimated Creat Clear 29.91 Estimated GFR 71 ml/min Glucose 192 H (60-115) mg/dL Calcium 9.4 (8.4-10.6) mg/dL Troponin I < 0.01 L Cancelled (0.01-0.04) ng/mL C-Reactive Protein 0.8 (0.5-1.0) mg/dL Imaging Data CT scan - chest: Attestation: I have reviewed the pertinent imaging results. Radiologist's impression: Patient: PHONG FRANK Facility:?[facility] Patient ID:?[id number] Site Patient ID:?[id number]. Site :?[id number] Study:?CT-Chest 75CC ISOVUE 370-01/22/2025 11:54:53 PM Ordering Physician:Jas Delarosa Final Report: INDICATION: Worsening chest pain. TECHNIQUE: CT chest acquired with 75 cc Isovue 370 IV contrast. COMPARISON: CT chest 01/16/2025. FINDINGS: Lungs and pleura: Bilateral lower lobe atelectasis, right greater than left. No suspicious nodules or infiltrates. No pleural effusions, pleural thickening, or pneumothorax. Heart and vasculature: Heart size is normal. Thoracic aorta and pulmonary artery are normal in caliber. Aortic and coronary artery calcifications. Lymph nodes/mediastinum: No mediastinal, hilar, or axillary adenopathy. Thyroid gland is unremarkable. Chest wall: No masses. Upper abdomen: Subcentimeter hypodense foci in the liver are too small to accurately characterize but unchanged. Bones: Increased conspicuity of nondisplaced sternum fracture. Degenerative changes of the spine. IMPRESSION: 1. Increased conspicuity of nondisplaced sternum fracture. 2. Otherwise no findings to explain worsening chest pain. Please note that all CT scans at this facility use dose modulation, iterative reconstruction, and/or weight-based dosing when appropriate to reduce radiation dose to as low as reasonably achievable. Dictated by Dustin Veloz MD @ 01/23/2025 12:43:29 AM (Electronic Signature) ECG Data Attestation: I personally reviewed and interpreted this ECG as follows: (Sinus rhythm, 78 beats per minute. No ischemic change or infarct noted.) Prior ECG tracings: available for review Discharge Plan Discharge Clinical Impression: Sternal fracture Patient Disposition: Home, Self-Care Condition: Stable Instructions: Pain Management (ED), Non-pharmacological Pain Management Therapies for Adults (ED) Additional Instructions: There is a sternal fracture but no complication outside of the sternal fracture seen. Need to take 1000 mg of Tylenol up to 3 times a day, can try to space it out every 8 hours to help give full coverage around the clock. The oxycodone you have at home is to be cut in half and can take half tablet or 2.5 mg every 6 hours as needed for extra pain control. You will need to contact Dr. Aguilar and get more oxycodone if you need further prescriptions. If this is not managing your pain, need to follow up in clinic or return to the ER. With your renal function, do not recommend NSAIDs. Note that narcotics can be constipating, do recommend MiraLax 17 g daily and add in senna 1-2 tablets once or twice daily as needed for soft but formed bowel movement daily. Activity Level: Activity as Tolerated Prescriptions: No Action insulin glargine [Lantus Solostar U-100 Insulin] 100 unit/mL (3 mL) insulin pen subcut (DME) lancets [OneTouch Delica Plus Lancet] 33 gauge misc See Rx Instructions .ROUTE .MEDSUPPLY Qty: 100 Patient Comments: [NO ORIGINAL SIG] Rx Instructions: As directed (DME) pen needle, diabetic [BD Ivelisse 2nd Gen Pen Needle] 32 gauge x 5/32 needle See Rx Instructions .ROUTE .MEDSUPPLY Qty: 1200 Patient Comments: [NO ORIGINAL SIG] Rx Instructions: As directed atorvastatin 20 mg tablet 20 mg PO DAILY levothyroxine 75 mcg tablet 75 mcg PO DAILY (DME) OneTouch Verio test strips Strip See Rx Instructions .ROUTE QID Qty: 10 Rx Instructions: As directed aspirin [Adult Low Dose Aspirin] 81 mg tablet,delayed release (DR/EC) 81 mg PO QDAY metformin 500 mg tablet extended release 24 hr 1,000 mg PO ONCE oxybutynin chloride 5 mg tablet 5 mg PO BID trospium 20 mg tablet 20 mg PO BID amlodipine 5 mg tablet PO DAILY olmesartan 40 mg tablet Patient Comments: [NO ORIGINAL SIG] insulin asp prt-insulin aspart 100 unit/mL (70-30) insulin pen SUBCUT Patient Comments: ADMINISTER 5 UNITS UNDER THE SKIN BEFORE BREAKFAST AND SUPPER MEALS Follow Up/Referrals: Adonis Aguilar MD [Primary Care Provider] - Stand Alone Forms: [employer] Info Instructions
--- NOTE | 2025-01-22 23:05 | CRLHL7_ITS ---
For Patients: As a result of the Century Cures Act, medical imaging exams and procedure reports are released immediately into your electronic medical record. You may view this report before your referring provider. If you have questions, please contact your health care provider. INDICATION: Worsening chest pain. TECHNIQUE: CT chest acquired with 75 cc Isovue 370 IV contrast. COMPARISON: CT chest 01/16/2025. FINDINGS: Lungs and pleura: Bilateral lower lobe atelectasis, right greater than left. No suspicious nodules or infiltrates. No pleural effusions, pleural thickening, or pneumothorax. Heart and vasculature: Heart size is normal. Thoracic aorta and pulmonary artery are normal in caliber. Aortic and coronary artery calcifications. Lymph nodes/mediastinum: No mediastinal, hilar, or axillary adenopathy. Thyroid gland is unremarkable. Chest wall: No masses. Upper abdomen: Subcentimeter hypodense foci in the liver are too small to accurately characterize but unchanged. Bones: Increased conspicuity of nondisplaced sternum fracture. Degenerative changes of the spine. IMPRESSION: 1. Increased conspicuity of nondisplaced sternum fracture. 2. Otherwise no findings to explain worsening chest pain. Please note that all CT scans at this facility use dose modulation, iterative reconstruction, and/or weight-based dosing when appropriate to reduce radiation dose to as low as reasonably achievable. Dictated by Dustin Veloz MD @ 01/23/2025 12:43:29 AM (Electronically Signed)
[2025-01-22 23:19] LABS: Basophils Percent Auto 0.2 % (0.0-3.0); Hematocrit 34.9 % (33.0-51.0); Hemoglobin* 11.1 gm/dL (12.0-16.0); Immature Granulocytes Pct Auto 1.1 %; Lymphocytes Percent Auto 24.7 % (20-44); Mean Corpuscular HGB Conc 32 gm/dL (32-36); Mean Corpuscular Hemoglobin 29 pg (26-34); Mean Corpuscular Volume 90 fL (80-100); Monocytes Percent Auto 11.5 % (0.0-11.0); Neutrophils Percent Auto 62.5 % (42.0-72.0); Platelet Count* 285 K/uL (140-440); RDW Coefficient of Variation % 15.5 % (11.5-15.5); Red Blood Count 3.89 m/uL (4.00-5.20); White Blood Count* 4.42 K/uL (4.50-11.00)
[2025-01-22 23:21] LABS: Slide Review Reflex No
[2025-01-22] MEDS: ONDANSETRON 2 MG/ML inj 4 MG IVP (23:23)
[2025-01-22] MEDS: fentaNYL 100 MCG/2 ML inj 25 MCG IVP (23:23)
[2025-01-22 23:31] LABS: Chloride* 98 mmol/L (96-114)
[2025-01-22 23:32] LABS: Potassium* 4.2 mmol/L (3.6-5.1); Sodium* 136 mmol/L (135-149)
[2025-01-22 23:34] LABS: Blood Urea Nitrogen* 17 mg/dL (7-30); Creatinine* 0.8 mg/dL (0.5-1.5); Est. Creatinine Clearance* 29.91; Estimated Glomerular Filt Rate 71 ml/min
[2025-01-22 23:35] LABS: Anion Gap 11 mEq/L (7-15); Calcium* 9.4 mg/dL (8.4-10.6); Carbon Dioxide* 27 mmol/L (20-32); Glucose* 192 mg/dL (60-115)
[2025-01-22 23:38] LABS: C Reactive Protein* 0.8 mg/dL (0.5-1.0)
[2025-01-22 23:48] LABS: Troponin I* < 0.01 ng/mL (0.01-0.04)
--- OUTSIDE RECORDS SUMMARY | 2025-01-23 00:16 | XMS_ITS | Clinical Summary ---
Author Organization [facility] Address [address] [place] [address] Care Team Providers Care M48/M60 Tank Driver Name Role Phone Raymond Arevalo Unavailable Adonis [...] be used to read blood sugars, follow tire retreader directions. Change each sensor every 14 days [...] 3 06/28/20 24 Active FreeStyle Tony 3 [place] for continuous blood glucose monitor (CGM)Indications: Controlled type 2 diabetes mellitus without complication, without long-term current use of insulin (HC) To be used to read blood sugars follow tire retreader directions. 1 Each 08/06/20 24 Active blood [...] be used to read blood sugars, follow tire retreader directions. 6 Each 3 09/09/20 24 Active [...] Overview (08/11/2020): Occurred 08/09/20; awaiting records from [facility]. MRI head performed 08/10/20; awaiting [...] Type Department Care Team Description 01/21/2025 Telephone [facility] [address] [place] [address] Adonis Aguilar MD Results 01/20/2025 9:45 AM CDT Office Visit [facility] [address] [place] [address] Adonis Aguilar MD Hospital F/U (Fell and hit her head) 01/20/2025 Travel 01/16/2025 Orders Only [facility] HIM SERVICES Scanner 1 scan: (1-Ord) [facility] CT CHEST WO, 01/16/2025 01/16/2025 Orders Only [facility] Scanner 1 scan: (1-Ord) [place], CT HEAD/BRAIN WO CON, 01/16/2025 01/16/2025 Orders Only [facility] Scanner 1 scan: (1-Ord) [facility], CT CERVICAL SPINE WO, 01/16/2025 12/23/2024 2:05 PM COUNTY ENGINEER Phone Office Visit [facility] [address] [place] [address] Adonis Aguilar MD Telehealth (Phone visit-covid) 12/23/2024 Nurse Triage [facility] [address] [place] [address] Adonis Aguilar MD Error-please disregard 12/22/2024 8:25 AM COUNTY ENGINEER Office [place] [address] [place] [address] Adonis Aguilar MD Hypertension Care Management; Medication Management (B12 levels and treatment) 12/22/2024 Travel 11/29/2024 Refill [facility] [address] [place] [address] Adonis Aguilar MD Refill Request (Metformin) 11/26/2024 8:25 AM COUNTY ENGINEER Office Visit [address] [place] [address] Adonis Aguilar MD Diabetes (3 month follow up) 11/26/2024 8:00 AM COUNTY ENGINEER Orders [place] [address] [place] [address] Lab, [facility] 11/26/2024 Travel 11/05/2024 11:20 AM COUNTY ENGINEER Office Visit [address] [place] [address] Adonis Aguilar MD Follow Up (Blood pressure medication change) 11/05/2024 Travel 10/26/2024 2:30 PM COUNTY ENGINEER Office Visit [address] [place] [address] Adonis Aguilar MD Blood Pressure (Elevated blood pressure past 3 days) 10/26/2024 Travel 10/25/2024 Telephone [facility] [address] [place] [address] Adonis Aguilar MD High Blood Pressure 10/25/2024 Nurse Triage [facility] [address] [place] [address] Adonis Aguilar MD High Blood Pressure from Last 3 Months Immunizations Immunization Administration Dates Next Due Amb Influenza, Inact (Intrad ermal)(age 18-64 Yrs)(Flu Clinic Only) 09/08/2012 COVID-19 VACCINE SPIKEVAX (M ODERNA 50MCG/0.5ML) 12YO+ PFS 07/26/2024,05/17/2024,08/07/2023 COVID-19 vaccine ([employer] NTech 30mcg/0.3mL) 12YO+ BIVALENT PF, MDV 04/24/2023,08/08/2022 COVID-19 vaccine (BringIt-Bio NTech 30mcg/0.3mL) PF, MDV 01/06/2021,12/16/2020 Influenza A [...] on file Legal Sex Female 6:28 AM COUNTY ENGINEER Gender Identity Not on file Sexual Orientation [...] CDT Respiratory Rate 18 09/21/2021 10:47 AM COUNTY ENGINEER Oxygen Saturation 99% 01/20/2025 9:41 AM CDT Inhaled Oxygen Concentration - - Weight 56.7 kg (125 lb) 01/20/2025 9:41 AM CDT Height 153.6 cm (5' 0.47) 08/18/2024 9:40 AM CD T Body Mass Index 24.03 08/18/2024 9:40 AM CDT Plan of Treatment Upcoming Encounters Date Type Department Care Team (Late st Contact Info) Description 02/03/2025 7:40 AM CDT Office Visit [facility] [address] [place] [address] Adonis Aguilar MD [address] [place] [address] 05/23/2025 10:05 AM CDT Office Visit [facility] [address] [place] [address] Adonis Aguilar MD [address] [place] [address] Health Maintenance Due Date Last Done Comments [...] unknown etiology SCAN-CT INTERPRETATION 5 12:00 AM COUNTY ENGINEER SCAN-CT INTERPRETATION 5 12:00 AM COUNTY ENGINEER SCAN-CT INTERPRETATION 5 12:00 AM COUNTY ENGINEER HEMOGLOBIN A1C MONITORING (POCT) Routine 11/26/2024 7:59 AM COUNTY ENGINEER Controlled type 2 diabetes mellitus with complication, with long-term current use of insulin (HC) BASIC METABOLIC PANEL Routine 11/26/2024 7:58 AM COUNTY ENGINEER Controlled type 2 diabetes mellitus without complication, without long-term current use of insulin (HC) LIPID PANEL W REFLEX MEASURED LDL Routine 11/26/2024 7:58 AM COUNTY ENGINEER Controlled type 2 diabetes mellitus with complication, with long-term current use of insulin (HC) VITAMIN B12 Routine 11/26/2024 7:58 AM COUNTY ENGINEER Vitamin B12 deficiency TSH WITH REFLEX Routine 11/26/2024 7:58 AM COUNTY ENGINEER Acquired hypothyroidism XR DXA BONE DENSITY 2 SITES AXIAL Routine 01/08/2021 8:52 AM COUNTY ENGINEER Post-menopausal from Last 3 Months or Most Recently Relevant to Health Maintenance Results * IRON PLUS IRON BINDING CAP (01/20/2025 10:27 AM CDT) IRON, TOTAL 54 45 - 160 mcg/dL [facility] IRON BINDING CAPACITY 348 250 - 450 mcg/dL (calc) [facility] % SATURATION 16 16 - 45 % (calc) [facility] Blood BLOOD SPECIMEN / Unknown 01/20/2025 10:27 AM CDT 01/20/2025 10:27 AM CDT us Adonis Aguilar MD CHEMISTRY Final Result Fil[facility] [address] [place] [address], [facility] [address] [place] [address] * (ABNORMAL) HEMOGLOBIN (01/20/2025 10:27 AM CDT) HEMOGLOBIN 11.1(L) 11.7 - 15.5 g/dL [facility] Blood BLOOD SPECIMEN / Unknown 01/20/2025 10:27 AM CDT 01/20/2025 10:27 AM CDT us Adonis Aguilar MD HEMATOLOGY Final Result [facility] [address] [facility] [place] [place] [address], [place] [phone] [facility] [address] [facility] [place] [address] * (ABNORMAL) FERRITIN (01/20/2025 10:27 AM CDT) FERRITIN 12(L) 16 - 288 ng/mL [facility] Blood BLOOD SPECIMEN / Unknown 01/20/2025 10:27 AM CDT 01/20/2025 10:27 AM CDT us Adonis Aguilar MD CHEMISTRY Final Result Performing Organization Address City/[facility]/ZIP Co de Phone Number [facility] [address] [facility] [place] [address], [place] [phone] [facility] [address] [facility] [place] [address] * (ABNORMAL) VITAMIN B12 (01/20/2025 10:27 AM CDT) Only the most recent of2 resultswithin the time period is included. VITAMIN B12 1,197(H) 200 - 1,100 pg/mL [facility] Blood BLOOD SPECIMEN / Unknown 01/20/2025 10:27 AM CDT 01/20/2025 10:27 AM CDT us Adonis Aguilar MD CHEMISTRY Final Result [facility] [address] [place] [address], [place] [phone] [facility] [address] [place] [address] * SCAN-CT INTERPRETATION (01/16/2025 12:00 AM COUNTY ENGINEER) Only the most recent of3 resultswithin the time period is included. Anatomical Region Laterality Modality Other us Scanner OTHER Final Result * (ABNORMAL) HEMOGLOBIN A1C MONITORING (POCT) (11/26/2024 7:59 AM COUNTY ENGINEER) Pathologist [facility] POC HEMOGLOBIN A1C 8.0(H) <6.0 % OF TOTAL HGB [facility] Comment: Any point of care results exhibiting inconsistency with the patient's clinical status should be repeated using a different testing method. Blood BLOOD SPECIMEN / Unknown 11/26/2024 7:59 AM COUNTY ENGINEER 11/26/2024 7:59 AM COUNTY ENGINEER us Adonis Aguilar MD CHEMISTRY Final Result [facility] [address] [place] [address], [place] [phone] [facility] [address] [place] [address] * TSH WITH REFLEX (11/26/2024 7:58 AM COUNTY ENGINEER) Pathologist [facility] TSH W/REFLEX TO FT4 2.86 0.40 - 4.50 mIU/L [facility] pr[facility]h [facility] Blood BLOOD SPECIMEN / Unknown 11/26/2024 7:58 AM COUNTY ENGINEER 11/26/2024 7:58 AM COUNTY ENGINEER Adonis Aguilar MD CHEMISTRY Final Result [facility] [address] [facility] [address], [place] [phone] [facility] [address] [place] [address] * LIPID PANEL W REFLEX MEASURED LDL (11/26/2024 7:58 AM COUNTY ENGINEER) CHOLESTEROL, TOTAL 142 <200 mg/dL [facility] HDL CHOLESTEROL 72 > OR = 50 mg/dL [facility] TRIGLYCERIDES 62 <150 mg/dL [facility] LDL-CHOLESTEROL 56 mg/dL (calc) [facility] Comment: Reference range: <100 Desirable range <100 mg/dL for primary prevention; <70 mg/dL for patients with CHD or diabetic patients with > or = 2 CHD risk factors. LDL-C is now calculated using the Taryn calculation, which is a validated novel method providing better accuracy than the Friedewald equation in the estimation of LDL-C. David SS et al. KAREN. 2013;310(19): 9844-3992 (http://education.ECO-GEN Energy/faq/POU370) CHOL/HDLC RATIO 2.0 <5.0 (calc) [facility] NON HDL CHOLESTEROL 70 <130 mg/dL (calc) [facility] Comment: For patients with diabetes plus 1 major ASCVD risk factor, treating to a non-HDL-C goal of <100 mg/dL (LDL-C of <70 mg/dL) is considered a therapeutic option. Blood BLOOD SPECIMEN / Unknown 11/26/2024 7:58 AM COUNTY ENGINEER 11/26/2024 7:58 AM COUNTY ENGINEER Adonis Aguilar MD CHEMISTRY Final Result Filtr8 [facility] [address] [place] [address], [facility] [address] [place] [address] * (ABNORMAL) BASIC METABOLIC PANEL (11/26/2024 7:58 AM COUNTY ENGINEER) GLUCOSE 148(H) 65 - 99 mg/dL [facility] Comment: Fasting reference interval For someone without known diabetes, a glucose value >125 mg/dL indicates that they may have diabetes and this should be confirmed with a follow-up test. UREA NITROGEN (BUN) 17 7 - 25 mg/dL [facility] CREATININE 0.79 0.60 - 0.95 mg/dL [facility] EGFR 72 > OR = 60 mL/min/1. 73m2 [facility] BUN/CREATININE RATIO SEE NOTE: 6 - 22 (calc) [facility] Comment: Not Reported: BUN and Creatinine are within reference range. SODIUM 139 135 - 146 mmol/L [facility] POTASSIUM 4.3 3.5 - 5.3 mmol/L [facility] CHLORIDE 99 98 - 110 mmol/L [facility] CARBON DIOXIDE 32 20 - 32 mmol/L [facility] ELECTROLYTE BALANCE 8 7 - 17 mmol/L (calc) [facility] CALCIUM 9.4 8.6 - 10.4 mg/dL [facility] Blood BLOOD SPECIMEN / Unknown 11/26/2024 7:58 AM COUNTY ENGINEER 11/26/2024 7:58 AM COUNTY ENGINEER us Adonis Aguilar MD CHEMISTRY Final Result Filtr[facility] [address] [place] [address], [facility] [address] [place] [address] * (ABNORMAL) XR DXA BONE DENSITY 2 SITES AXIAL (01/08/2021 8:52 AM COUNTY ENGINEER) Anatomical Region Laterality Modality Spine, HIPS, HIPL, HIPR Other Impressions 01/12/2021 4:27 PM COUNTY ENGINEER Osteopenia. RECOMMENDATIONS: The National Osteoporosis Foundation recommends [...] recommended in 2 years. Joyce Rome PA-C [facility] 01/12/2021 Narrative 01/12/2021 4:27 PM COUNTY ENGINEER XR DXA Bone Mineral Density (BMD) EXAM LOCATION: [facility] [address] [facility] [address] PATIENT NAME: Naomy Coburn DATE OF : [...] two scanners are made by the same tire retreader. PROCEDURE: Dual-energy x-ray absorptiometry performed with routine [...] HB ONLY MEDICARE PART A HB ONLY [facility] MEDICARE ADVANTAGE MR Advance Directives Documents on File Type Date Recorded Patient Permastone Applicator Expl anation Healthcare Directive 01/14/2022 10:01 AM HE ALTHCARE DIRECTIVE, 12/04/21 Healthcare Directive 10/29/2012 2:36 PM [facility], 12/26/10 Care Teams M48/M60 Tank Driver Relationship Specialty Start Date End Date Adonis Aguilar MD [address] [place] [address] PCP - General Family Practice 08/31/15 Raymond Arevalo [address] [place] [address] Ophthalmology Surgery 10/23/11
[2025-01-23] MEDS: OXYCODONE 5 MG TABLET 2.5 MG PO (00:34)
== END 2025-01-23 01:22 | disposition home or self-care (01) ==
PROVIDERS: Emergency Provider Family Medicine; PCP Family Medicine
DX: S22.20XA Unspecified fracture of sternum, initial encounter for closed fracture (principal); W19.XXXA Unspecified fall, initial encounter
CPT/HCPCS: 36415; 71260; 80048; 84484; 85025; 86140; 93005; 94761; 96374; 96375; 99284; 99285; A9270; J2405; J3010; Q9967

== ENCOUNTER 2025-05-20 12:48 | Emergency (ER) | payer MEDICARE, SELFPAY ==
--- OUTSIDE RECORDS SUMMARY | 2025-05-20 12:50 | XMS_ITS | Clinical Summary ---
Author Organization [facility] Address [address] [place] [address] Care Team Providers Care Unitizer Name Role Phone Raymond Arevalo Unavailable Adonis Aguilar MD Primary Care Provider Steph Reza RN Unavailable [phone] Allergies No known active allergies Medications zinc 50 mg tablet Twice weekly 0 015 Active calcium carbonate-vitami n D3, 500 mg-400 units, (OSCAL 500 + D) tablet Take 1 tablet by mouth once daily. May take 3 extra doses in 1 week. 0 016 Active ascorbic acid (VITAMIN C) 100 mg tablet Take 1 tablet 2 times in 1 week. Take with Zinc. 0 016 Active acetaminophen (TYLENOL EXTRA STRGTH) 500 mg tablet Take 1 tablet by mouth every 6 hours if needed. Max acetaminophen dose: 4000mg in 24 hrs. 0 017 Active blood-glucose meterIndications :Diabetes mellitus type 2, noninsulin dependent (HC) Dispense meter, test strips, lancets covered by pt ins. E11.9 NIDDM type II - Test 1 time/day 1 Device 018 Active aspirin (ECOTRIN) 81 mg enteric coated tablet Take 1 tablet by mouth once daily with a meal. 0 020 Active cyanocobalamin (VITAMIN B12) 1,000 mcg tabletIndication s:Vitamin B12 deficiency TAKE 1 TABLET BY MOUTH EVERY DAY 90 Tablet 1 021 Active Additional Information Patient taking differently: 100 mcgOral DAILY, Reported on 02/15/2025 lancets (OneTouch Delica Plus Lancet) 33 gauge miscIndications: Diabetes mellitus type 2, noninsulin dependent (HC) USE TO TEST TWICE DAILY 200 Each 3 023 Active FreeStyle Tony 3 Sensor for continuous blood glucose monitor (CGM)Indications :Controlled type 2 diabetes mellitus without complication, without long-term current use of insulin (HC) To be used to read blood sugars, follow sod cutter directions. Change each sensor every 14 days 6 Each 3 024 Active pen needle (BD Ivelisse 2nd Gen Pen Needle) 32 gauge x 5/32 (disposable insulin pen needle)Indicatio ns:Controlled type 2 diabetes mellitus with complication, with long-term current use of insulin (HC) As directed 4 to 6 times daily after meals, at bedtime and as needed. 400 Each 3 024 Active FreeStyle Tony 3 [place] for continuous blood glucose monitor (CGM)Indications :Controlled type 2 diabetes mellitus without complication, without long-term current use of insulin (HC) To be used to read blood sugars follow sod cutter directions. 1 Each 024 Active blood sugar diagnostic (OneTouch Verio test strips) stripIndications :Diabetes mellitus type 2 with complications (HC) USE TO TEST 3-4 TIMES DAILY 300 Each 3 024 Active oxybutynin (DITROPAN) 5 mg tabletIndication s:OAB (overactive bladder) Take 1 Tablet (5 mg) by mouth two times daily. 180 Tablet 3 024 Active FreeStyle Tony 3 Plus Sensor for continuous blood glucose monitor (CGM)Indications :Controlled type 2 diabetes mellitus without complication, without long-term current use of insulin (HC) To be used to read blood sugars, follow sod cutter directions. 6 Each 3 024 Active estradioL (ESTRACE) 0.01% (0.1 mg/g) vaginal creamIndications :Post-menopausal atrophic vaginitis Place a small amount to the outside of vaginal and labia at bedtime. 42.5 g 3 024 Active clotrimazole-bet amethasone 1%-0.05% creamIndications :Post-menopausal atrophic vaginitis Apply topically to affected area(s) two times daily. 15 g 024 Active atorvastatin (LIPITOR) 20 mg tabletIndication s:Controlled type 2 diabetes mellitus without complication, without long-term current use of insulin (HC) Take 1 Tablet (20 mg) by mouth once daily. 90 Tablet 3 025 Active levothyroxine (SYNTHROID) 100 mcg tabletIndication s:Hypothyroidism , unspecified type Take 1 Tablet (100 mcg) by mouth before breakfast. 90 Tablet 3 025 Active olmesartan (BENICAR) 40 mg tabletIndication s:Benign essential HTN Take 1 Tablet (40 mg) by mouth once daily. 90 Tablet 3 025 Active amLODIPine (NORVASC) 5 mg tabletIndication s:Benign essential HTN Take 1 Tablet (5 mg) by mouth once daily. 90 Tablet 3 025 Active cyanocobalamin (VITAMIN B12) 1,000 mcg tabletIndication s:Vitamin B 12 deficiency Take 1 Tablet (1,000 mcg) by mouth once daily. 90 Tablet 3 025 Active ferrous sulfate 325 mg delayed release tabletIndication s:Iron deficiency anemia, unspecified iron deficiency anemia type Take 1 Tablet (325 mg) by mouth once every other day. 45 Tablet 3 025 Active oxyCODONE 5 mg immediate release tabletIndication s:Closed fracture of body of sternum, sequela 1/2 to 1 tablet p.o. twice daily as needed. 20 Tablet 025 Active insulin aspart (U-100) (NovoLOG Flexpen U-100 Insulin) 100 unit/mL (3 mL) penIndications:C ontrolled type 2 diabetes mellitus without complication, without long-term current use of insulin (HC) ADMINISTER 4 TO 8 UNITS UNDER THE SKIN BEFORE MEALS 30 mL 025 Active Lantus Solostar U-100 Insulin 100 unit/mL (3 mL) penIndications:C ontrolled type 2 diabetes mellitus without complication, without long-term current use of insulin (HC) Inject 6 units subcutaneous before bedtime. Product desired: LANTUS SOLOSTAR 15 mL 1 025 Active metFORMIN (GLUCOPHAGE XR) 500 mg Extended-Release tabletIndication s:Controlled type 2 diabetes mellitus without complication, without long-term current use of insulin (HC) TAKE 4 TABLETS(2000 MG) BY MOUTH EVERY DAY WITH THE EVENING MEAL 360 Tablet 1 025 Active metFORMIN 500 mg Extended-Release tabletIndication s:Controlled type 2 diabetes mellitus without complication, without long-term current use of insulin (HC) TAKE 4 TABLETS(2000 MG) BY MOUTH EVERY DAY WITH THE EVENING MEAL 360 Tablet 025 2024 Discontinued Active Problems Problem Noted Date Diagnosed Date [...] Overview (08/11/2020): Occurred 08/09/20; awaiting records from [facility]. MRI head performed 08/10/20; awaiting [...] Encounters Date Type Department Care Team Description 05/20/2025 Nurse Triage [facility] [address] [place] [address] Adonis Aguilar MD High Blood Sugar 05/17/2025 Refill [facility] [address] [place] [address] Adonis Aguilar MD Refill Request (Metformin) 03/29/2025 Nurse Triage [facility] [address] [place] [address] Adonis Aguilar MD Questions 03/17/2025 Nurse Triage [facility] [address] [place] [address] Adonis Aguilar MD Diabetes (High glucoses) 02/25/2025 Refill [facility] [address] [place] [address] Adonis Aguilar MD Refill Request (Metformin) 02/18/2025 Telephone [facility] [address] [place] [address] Adonis Aguilar MD Results; requesting call from Last 3 Months Immunizations Immunization Administration Dates Next Due Amb Influenza, Inact (Intrad ermal)(age 18-64 Yrs)(Flu Clinic Only) 09/08/2012 COVID-19 VACCINE SPIKEVAX (M ODERNA 50MCG/0.5ML) 12YO+ PFS 02/03/2025,07/26/2024,05/17/2024,08/07 COVID-19 vaccine (Enterprise[employer] NTech 30mcg/0.3mL) 12YO+ BIVALENT PF, MDV 04/24/2023,08/08/2022 [...] on file Legal Sex Female 6:[address] DEPUTY Gender Identity Not on file Sexual Orientation [...] Sign Reading Time Taken Comments Blood Pressure 175/72 02/15/2025 3:46 PM CDT Pulse 78 02/15/2025 3:46 PM CDT Temperature 36.8 C (98.3 F) 04/26/2024 10:37 AM CDT Respiratory Rate 18 09/21/2021 10:[address] DEPUTY Oxygen Saturation 97% 02/15/2025 3:46 PM CDT Inhaled Oxygen Concentration - - Weight 57.7 kg (127 lb 3.2 oz) 02/03/2025 7:37 A M CDT Height 153.6 cm (5' 0.47) 08/18/2024 9:40 AM CD T Body Mass Index 24.46 08/18/2024 9:40 AM CDT Plan of Treatment Upcoming Encounters Date Type Department Care Team (Late st Contact Info) Description 05/23/2025 10:05 AM CDT Office Visit [facility] [address] [place] [address] Adonis Aguilar MD [address] [place] [address] Health Maintenance Due Date Last Done Comments Influenza Vaccine (#1) 2025 4, 08/07/2023, 08/08/2022, Additional history exists BMI (ht and wt on same day) for age 18+ 08/18/2025 08/18/2024, 01/05/2024, 05/29/2023, Additional history exists Depression screening for age 12+ 08/18/2025 08/18/2024, 08/18/2024, 05/29/2023, Additional history exists Medicare Wellness for age 65+ 08/19/2025 08/18/2024, 05/29/2023, 04/26/2022, Additional history exists Tetanus booster 09/18/2031 09/18/2021, 10/10, 09/06/2002 Zoster (shingles) series for age 50+ Completed 06/02/2018, 03/04/2018, 12/11/2017, Additional history exists DEXA/DXA scan for age 65+ Completed 2020, 12/08/2015, 11/21/2011, Additional history exists Pneumococcal series for age 50+ Completed 05/29/2023, 08/22/2015, 09/05/2003 RSV vaccine for adults or Completed 08/16/2023 COVID-19 vaccine series Completed 02/04/20, 07/26/2024, 05/17/2024, Additional history exists Hepatitis B series for 19+ Aged Out N o longer eligible based on patient's age to complete this topic Procedures Procedure Name Priority Date/Time Associated Diagnosis Comments XR DXA BONE DENSITY 2 SITES AXIAL Routine 01/08/2021 8:[address] DEPUTY Post-menopausal from Last 3 Months or Most Recently Relevant to Health Maintenance Results * (ABNORMAL) XR DXA BONE DENSITY 2 SITES AXIAL (01/08/2021 8:[address] DEPUTY) Anatomical Region Laterality Modality Spine, HIPS, HIPL, HIPR Other Impressions 01/12/2021 4:[address] DEPUTY Osteopenia. RECOMMENDATIONS: The National Osteoporosis Foundation recommends [...] recommended in 2 years. Joyce Rome PA-C [facility] 01/12/2021 Narrative 01/12/2021 4:[address] DEPUTY XR DXA Bone Mineral Density (BMD) EXAM LOCATION: [facility] [address] [facility] [address] PATIENT NAME: Naomy Coburn DATE OF : [...] two scanners are made by the same sod cutter. PROCEDURE: Dual-energy x-ray absorptiometry performed with routine [...] HB ONLY MEDICARE PART A HB ONLY [facility] MEDICARE ADVANTAGE MR Advance Directives Documents on File Type Date Recorded Patient Undercoater Expl anation Healthcare Directive 01/14/2022 10:01 AM HE ALTHCARE DIRECTIVE, 12/04/21 Healthcare Directive 10/29/2012 2:36 PM [facility], 12/26/10 Care Teams Unitizer Relationship Specialty Start Date End Date Adonis Aguilar MD [address] [place] [address] PCP - General Family Practice 08/31/15 Raymond Arevalo [address] [place] [address] Ophthalmology Surgery 10/23/11 Steph Reza RN [address] [place] [address] Compensation Business Partner 03/31/25
[2025-05-20 12:55] VITALS: BP 157/68; PULSE 86; RESP 16; TEMP 36.9; O2SAT 96; BMI 23.6
--- NOTE | 2025-05-20 13:18 | ED.GENADULT ---
HPI - General Adult General Chief complaint: Diabetic Related Problem Stated complaint: high level sugar Time Seen by Provider: 05/20/25 12:49 History of Present Illness HPI narrative: Patient has a who has been in long-term care and been very stressful time for her blood sugars been elevated recently in the 250-300 range. She takes a small amount of regular insulin before meals and does Lantus 6 units at night. The patient was told to come see someone about her blood sugars have been in the 250-350 range, and she was unable to get in the clinic so she comes to the ER. She is asymptomatic. No fevers chills no infectious symptoms. She is alert awake and has no other complaints Related Data Home Medications ?Medication ?Instructions ?Recorded ?Confirmed aspirin 81 mg tablet,delayed 81 mg PO QDAY 08/09/23 01/16/25 release (Adult Low Dose Aspirin) atorvastatin 20 mg tablet 20 mg PO DAILY 08/09/23 01/16/25 blood sugar diagnostic (OneTouch #10 ea 08/09/23 11/30/24 Verio test strips) insulin glargine 100 unit/mL (3 unit subcut 08/09/23 11/30/24 mL) subcutaneous pen (Lantus Solostar U-100 Insulin) lancets 33 gauge (OneTouch Delica #100 ea 08/09/23 11/30/24 Plus Lancet) levothyroxine 75 mcg tablet 75 mcg PO DAILY 08/09/23 01/16/25 pen needle, diabetic 32 gauge x #1,200 ea 08/09/23 11/30/24 5/32 (BD Ivelisse 2nd Gen Pen Needle) insulin aspar prot-insulin aspart subcut 03/30/24 11/30/24 100 unit/mL (70-30) subcutaneous pen metformin 500 mg tablet,extended 1,000 mg PO ONCE 04/11/24 01/16/25 release 24 hr oxybutynin chloride 5 mg tablet 5 mg PO BID 08/24/24 01/16/25 trospium 20 mg tablet 20 mg PO BID 08/24/24 11/30/24 amlodipine 5 mg tablet mg PO DAILY 11/30/24 11/30/24 olmesartan 40 mg tablet mg 01/16/25 Allergies Allergy/AdvReac Type Severity Reaction Status Date / Time No Known Drug Allergies Allergy Verified 01/22/25 23:52 Review of Systems Status of ROS: Reports: 6 or more systems reviewed and unremarkable except as noted in History and below [facility] Medical History Afib ?I48.91 - Unspecified atrial fibrillation (ICD-10) Primary osteoarthritis of both knees ?M17.0 - Bilateral primary osteoarthritis of knee (ICD-10) Bilateral carpal tunnel syndrome ?G56.03 - Carpal tunnel syndrome, bilateral upper limbs (ICD-10) TIA (transient ischemic attack) (08/09/20) ?G45.9 - Transient cerebral ischemic attack, unspecified (ICD-10) Type 2 diabetes mellitus ?E11.9 - Type 2 diabetes mellitus without complications (ICD-10) Hypothyroidism ?E03.9 - Hypothyroidism, unspecified (ICD-10) Surgical History History of carpal tunnel surgery of right wrist (11/17/24) ?Z98.890 - Other specified postprocedural states (ICD-10) History of carpal tunnel release (09/01/24) ?Z98.890 - Other specified postprocedural states (ICD-10) History of hernia repair ?Z98.890 - Other specified postprocedural states (ICD-10) ?Z87.19 - Personal history of other diseases of the digestive system (ICD-10) History of hysterectomy ?Z90.710 - Acquired absence of both cervix and uterus (ICD-10) History of breast biopsy ?Z98.890 - Other specified postprocedural states (ICD-10) History of arthroscopy of left knee (03/01/15) ?Z98.890 - Other specified postprocedural states (ICD-10) Social History Smoking Status: Never smoker Do you use any of these nicotine containing products: None How often do you have a drink containing alcohol: 4 or more times a week How many standard drinks containing alcohol do you have on a typical day: 1 or 2 How often do you have six or more drinks on one occasion: Never AUDIT-C Alcohol total score: 4 Non-prescribed substance use: denies use service: No Exam Narrative: Exam Narrative: Objective vital signs are within normal limits other than slightly elevated systolic systolic pressure She is alert orient x3 mental status is appropriate. No complaints of pain or discomfort. Const: Vital Signs, click to edit/add: Vital Signs - 24 hr 05/20/25 12:55 Temperature 98.5 F Pulse Rate [Pulse Oximeter] 86 Respiratory Rate 16 Blood Pressure [Ri ght Upper Arm] 157/68 H Pulse Oximetry 96 Oxygen Delivery Me thod Room Air Course Vital Signs Vital signs: Initial Vital Signs Temperature 98.5 F 05/20/25 12:55 Temperature Source Temporal Artery Scan 05/20/25 12:55 Pulse Rate 86 05/20/25 12:55 Respiratory Rate 16 05/20/25 12:55 Blood Pressure 157/68 H 05/20/25 12:55 Blood Pressure Mean 97 05/20/25 12:55 Blood Pressure Position Sitting 05/20/25 12:55 Pulse Oximetry 96 05/20/25 12:55 Oxygen Delivery Method Room Air 05/20/25 12:55 Vital Signs Temperature 98.5 F 05/20/25 12:55 Pulse Rate 86 05/20/25 12:55 Respiratory Rate 16 05/20/25 12:55 Blood Pressure 157/68 H 05/20/25 12:55 Pulse Oximetry 96 05/20/25 12:55 Oxygen Delivery Method Room Air 05/20/25 12:55 Temperature 98.5 F 05/20/25 12:55 Pulse Rate 86 05/20/25 12:55 Respiratory Rate 16 05/20/25 12:55 Blood Pressure 157/68 H 05/20/25 12:55 Pulse Oximetry 96 05/20/25 12:55 Oxygen Delivery Method Room Air 05/20/25 12:55 Medical Decision Making [facility] Narrative Medical decision making narrative: Eighty 10-year-old white female with insulin-dependent diabetes with increased stress recently with elevated blood sugars. Looking at her blood sugar log appears that she runs a little high in the morning and is managing well during the day she has been slightly elevated and her blood sugars in the 250 range to 300 range. I think it be reasonable at this point increase her Lantus at night 8 units from 6, and continue the same dose of regular insulin before meals. She will continue to monitor her sugars and record them and then discussed with Dr. Aguilar on Friday. Return to ED sooner problems or concerns. Symptoms of hypoglycemia discussed and what to do if this occurs she is well aware. Return as needed. Discharge Plan Discharge Clinical Impression: Diabetes Patient Disposition: Home, Self-Care Condition: Stable Additional Instructions: Patient will increase her Lantus insulin at night 8 units, should continue the same dose of pre meal insulin. She will check with Dr. Aguilar on Friday. Understands symptoms of hypoglycemia and what to do in that case. She is comfortable the assessment. Activity Level: No Restrictions Discharge Diet: Diabetic Prescriptions: No Action insulin glargine [Lantus Solostar U-100 Insulin] 100 unit/mL (3 mL) insulin pen subcut (DME) lancets [OneTouch Delica Plus Lancet] 33 gauge misc See Rx Instructions .ROUTE .MEDSUPPLY Qty: 100 Patient Comments: [NO ORIGINAL SIG] Rx Instructions: As directed (DME) pen needle, diabetic [BD Ivelisse 2nd Gen Pen Needle] 32 gauge x 5/32 needle See Rx Instructions .ROUTE .MEDSUPPLY Qty: 1200 Patient Comments: [NO ORIGINAL SIG] Rx Instructions: As directed atorvastatin 20 mg tablet 20 mg PO DAILY levothyroxine 75 mcg tablet 75 mcg PO DAILY (DME) OneTouch Verio test strips Strip See Rx Instructions .ROUTE QID Qty: 10 Rx Instructions: As directed aspirin [Adult Low Dose Aspirin] 81 mg tablet,delayed release (DR/EC) 81 mg PO QDAY metformin 500 mg tablet extended release 24 hr 1,000 mg PO ONCE oxybutynin chloride 5 mg tablet 5 mg PO BID trospium 20 mg tablet 20 mg PO BID amlodipine 5 mg tablet PO DAILY olmesartan 40 mg tablet Patient Comments: [NO ORIGINAL SIG] insulin asp prt-insulin aspart 100 unit/mL (70-30) insulin pen SUBCUT Patient Comments: ADMINISTER 5 UNITS UNDER THE SKIN BEFORE BREAKFAST AND SUPPER MEALS Follow Up/Referrals: Adonis Aguilar MD [Primary Care Provider, Family Practice] Stand Alone Forms: Weave Info Instructions
== END 2025-05-20 13:28 | disposition home or self-care (01) ==
LOC: ED 13:25
PROVIDERS: Emergency Provider Family Medicine; PCP Family Medicine
DX: E11.65 Type 2 diabetes mellitus with hyperglycemia (principal)
CPT/HCPCS: 82962; 99283; 99284